=== PATIENT | female | born 1955 | race Caucasian/White ===

== ENCOUNTER 2017-09-18 12:01 | Observation (INO) ==
[2017-09-18] MEDS ORDERED: *HR* Morphine 2 MG/ML SYRINGE IVP PRN ×2 (18:00→19:32)
[2017-09-18] MEDS ORDERED: Acetaminophen 325 MG TABLET PO PRN (19:22)
[2017-09-18] MEDS ORDERED: Nitroglycerin 0.4 MG TAB.SUBL SL PRN (19:27)
[2017-09-18] MEDS ORDERED: Naloxone 0.4 MG/ML INJ IVP PRN (19:28)
[2017-09-18] MEDS ORDERED: Ondansetron 4 MG/2 ML VIAL IVP PRN (19:28)
--- NOTE | 2017-09-18 19:34 | Internal Med History&Physical ---
Date of Encounter: 09/18/17 Time of Encounter: 19:32 Assessment and Plan (1) Rectus sheath hematoma Current visit: Yes Status: Acute Left focal rectus sheath hematoma exacerbated by Coumadin with supratherapeutic INR and Plavix Risks of reversing Coumadin and stopping Plavix were explained, option of not reversing it were given and discussed with the patient She prefers at this point to reverse the high INR and stop Plavix Give vitamin K, administer fresh frozen plasma, hold Plavix and monitor INR Protonix 40 a prophylaxis and sequential compression devices for DVT prophylaxis. The patient will be admitted as inpatient, expected to stay more than 2 minutes. Full code. Time spent on this admission 40 minutes Qualifiers: Encounter type: initial encounter Qualified Code(s): S30.1XXA - Contusion of abdominal wall, initial encounter (2) Sepsis Current visit: Yes Status: Acute Acute hypoxic COPD exacerbation due to Sepsis secondary to community-acquired pneumonia *Solu-Medrol, Rocephin and azithromycin Oxygen therapy, DuoNeb nebs Blood cultures Qualifiers: Sepsis type: sepsis due to unspecified organism Qualified Code(s): A41.9 - Sepsis, unspecified organism (3) CAD (coronary artery disease) Current visit: No Status: Chronic Continue metoprolol, isosorbide, simvastatin Check EKG EKG was not in the paperwork, report reads atrial fibrillation with rapid ventricular response and moderate ST depression Check echocardiogram and CT scan shows possible left ventricular aneurysm Qualifiers: Coronary Disease-Associated Artery/Lesion type: bypass graft [place] vs. transplanted heart: [place] heart Associated angina: without angina Qualified Code(s): I25.810 - Atherosclerosis of coronary artery bypass graft(s) without angina pectoris (4) CKD (chronic kidney disease), stage III Current visit: No Status: Chronic (5) Tobacco abuse Current visit: No Status: Chronic Smoking cessation counseling, nicotine patch (6) Ischemic cardiomyopathy Current visit: No Status: Acute (7) Elevated troponin Current visit: No Status: Acute Likely secondary to demand ischemia, monitor troponins, telemetry (8) Atrial fibrillation Current visit: No Status: Chronic Atrial fibrillation with rapid ventricular response Use Lopressor IV as needed, consider Cardizem Qualifiers: Atrial fibrillation type: chronic Qualified Code(s): I48.2 - Chronic atrial fibrillation (9) COPD exacerbation Current visit: No Status: Acute Acute COPD exacerbation Steroids (10) Community acquired pneumonia Current visit: No Status: Acute Qualifiers: Laterality: unspecified laterality Qualified Code(s): J18.9 - Pneumonia, unspecified organism (11) HLD (hyperlipidemia) Current visit: No Status: Chronic Qualifiers: Hyperlipidemia type: unspecified Qualified Code(s): E78.5 - Hyperlipidemia , unspecified (12) Supratherapeutic INR Current visit: No Status: Acute Internal Medicine - H&P: HPI Chief complaint: Abdominal pain Admitted From: Emergency Dept History of present illness: Ms. Christian is a 61 year old female with a past medical history of atrial fibrillation on anticoagulation, CAD status post stents and peripheral vascular disease on Plavix. The patient started complaining of left lower quadrant abdominal pain 3 days after [place], got worse today and was 10 out of 10 in intensity. The pain was described as sharp. CT scan of the abdomen showed focal left rectus sheath hematoma, evidence of possible left ventricular aneurysm and a right renal stone nonobstructive. INR is 3.2, troponin 0.09 although she denies any chest pain. Chest x-ray also showed bilateral basilar pneumonia. White blood cell count is 22 heart rate is 101 platelets 407 ESR 40. They are physician in [place] called Dr. Hancock who recommended admission to the hospitalist service. Patient feels slightly short of breath ABG shows a pH of 7.46 PCO2 32 and PO2 76. [place] better after receiving Dilaudid. Has been bringing up yellowish phlegm. He is in excruciating pain. 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) - Social History Smoking Status: Current every day smoker Packs per day: 1 Smokeless Tobacco Status: No Alcohol use: occasionally Drug use: none - Family History Mother Adopted: No Living Status: Hx Family Cardiac Disorders: Yes (PT REPORTED HER MOTHER HAD HEART PROBLEMS.) Father Adopted: No Family Member Ethnicity: Non- Living Status: Hx Family Cardiac Disorders: Yes Hx Family Respiratory Disorders: No Hx Family Cancer: Yes Hx Family GI Disorders: No - Additional Family History Additional family history: Mother with heart disease, father with myocardial infarction in his 50s Internal Medicine - H&P: Meds Albuterol Neb [Proventil Neb] 2.5 mg IH Q4HR 06/08/15 [History] Albuterol Sulfate [Albuterol Inhaler] 2 puff IH Q4HR 06/08/15 [History] Clopidogrel [Plavix] 75 mg PO DAILY 06/08/15 [History] Paroxetine [Paxil] 40 mg PO BID 06/08/15 [History] Isosorbide MONOnitrate (24 HR) [Imdur] 30 mg PO DAILY #30 tab.er.24h 10/25/15 [ Rx] Metoprolol XL (24 HR) Succ [Toprol Xl] 100 mg PO DAILY 30 Days tab.er.24h 10/25 [Rx] Nitroglycerin 0.4 mg SL Q5MIN PRN #100 tab.subl 10/25/15 [Rx] Simvastatin [Zocor] 40 mg PO HS #30 tablet 10/25/15 [Rx] HYDROcodone/Acet 7.5/325 mg [[place] 7.5-325 mg] 1 tab PO Q6H PRN 10/28/15 [ History] Lisinopril [Zestril] 2.5 mg PO DAILY #30 tablet 10/30/15 [Rx] Furosemide [Lasix] 20 mg PO DAILY 09/03/16 [History] Warfarin [Coumadin] 5 mg PO DAILY 09/03/16 [History] GuaiFENesin/Dextromethorphan [Robitussin/Dm] 10 ml PO Q6HR PRN #1 udc 09/06/16 [ Rx] predniSONE [PredniSONE] 40 mg PO DAILY #4 tablet 09/06/16 [Rx] 3 Allergy/AdvReac Type Severity Reaction Status Date / Time atorvastatin [From Lipitor] AdvReac See Verified 09/18/17 04:24 Comments All Systems PM: A 10-system review of systems was performed and is negative for pertinent findings except as documented above in the HPI. Review of systems: Severe pain, shortness of breath. Other systems out of the ten reviewed were negative - Constitutional Vitals: Temp Pulse Resp BP Pulse Ox 99.0 F 101 16 137/69 93 09/18/17 15:04 09/18/17 15:04 09/18/17 15:04 09/18/17 15:04 09/18/17 15:04 General appearance: Present: A&O X 3 - Head Head exam: Present: atraumatic, normocephalic - Eye Eye exam: Present: PERRL, conjuntiva pink, sclera anicteric Pupils: Present: PERRL - Neck Neck exam general surgery: Present: supple, trachea midline. Absent: lymphadenopathy - Respiratory Respiratory exam: Present: CTAB, rales, wheezes (Bibasilar crackles and diffuse wheezing). Absent: accessory muscle use, rhonchi - Cardiovascular Cardiovascular exam: Present: RRR, +S1, +S2. Absent: diastolic murmur, gallop, rubs, systolic murmur - GI/Abdominal GI/Abdominal exam: Present: normal bowel sounds, soft, tenderness (Left lower quadrant tenderness, no ecchymosis), no peritoneal signs. Absent: distended - Extremities Exam Extremities exam: Present: pedal edema (Minimal +1 pitting edema in both lower extremities), warm, radial pulses palpable and symmetrical. Absent: calf tenderness, cyanotic - Neurological Exam Neurological exam: Present: CN II-XII intact, oriented X3, no focal deficits. Absent: pronater drift, facial droop, speech deficit - Skin Skin exam: Present: dry, intact Internal Med - H&P Results - Labs Labs: As described in HPI
[2017-09-18] MEDS ORDERED: *HR* Metoprolol 5 MG/5 ML VIAL IVP PRN (19:45)
[2017-09-18] MEDS: *HR* HYDROmorphone (PF) 1 MG/ML SYRINGE IVP PRN (20:14)
[2017-09-18] MEDS: Ipratropium/Albuterol Neb 3 ML IH SCH ×2 (20:18→22:24)
[2017-09-18] MEDS: 0.9 % Sodium Chloride 1,000 ML IVC SCH (20:34)
[2017-09-18] MEDS: Azithromycin 500 MG in D5% in Water 250 ML IVPB SCH (20:35)
[2017-09-18] MEDS: cefTRIAXone 1,000 MG in Water for inj. (sterile) 20 ML 10 ML IVP SCH (20:37)
[2017-09-18] MEDS ORDERED: 0.9 % Sodium Chloride 250 ML ONE (22:02)
[2017-09-18] MEDS: Pantoprazole 40 MG VIAL IVP SCH (22:08)
[2017-09-18] MEDS: MethylPREDNISolone 40 MG/ML VIAL IVP SCH (22:08)
[2017-09-18] MEDS: Nicotine 21 MG PATCH.TD24 TD SCH (22:09)
[2017-09-19] MEDS: Ipratropium/Albuterol Neb 3 ML IH SCH ×4 (03:37→22:47)
[2017-09-19] MEDS: MethylPREDNISolone 40 MG/ML VIAL IVP SCH ×3 (06:41→23:05)
[2017-09-19] MEDS ORDERED: Perflutren Lipid Microsphere 1.3 ML in 0.9 % Sodium Chloride 8.7 ML IVP ONE (07:25)
[2017-09-19 08:14] LABS: INR 1.6; Prothrombin Time 16.9 Seconds (9.4-12.1)
[2017-09-19 08:21] LABS: BUN/Creatinine Ratio 18 (6-26); Blood Urea Nitrogen 20 mg/dL (8-23); Calcium 8.6 mg/dL (8.6-10.3); Carbon Dioxide 22 mEq/L (23-29); Chloride 110 mEq/L (98-107); Chol/HDL Ratio 4.9 (0-4.9); Cholesterol 176 mg/dL (< 200); Glucose 194 mg/dL (70-105); HDL Cholesterol 36 mg/dL (40-59); LDL Cholesterol,Calculated 121 mg/dL (0-99); Osmolality,Calculated 298 (280-300); Potassium 4.3 mEq/L (3.5-5.1); Sodium 140 mEq/L (136-145); Triglycerides 97 mg/dL (< 150); eGFR For African Americans > 60 (> 60); eGFR For Non-African Americans 50 (> 60)
[2017-09-19 08:44] LABS: Hematocrit 31.4 % (35.3-44.9); Hemoglobin 9.8 g/dL (11.5-15.4); Immature Platelets 2.8 % (1.1-6.1); Mean Corpuscular HGB Conc 31.2 g/dL (31.6-35.5); Mean Corpuscular Hemoglobin 27.9 pg (28.0-33.3); Mean Corpuscular Volume 89.5 fL (83.0-100.0); Mean Platelet Volume 9.9 fL (9.4-12.4); Red Blood Count 3.51 M/mcL (3.82-4.97); Red Cell Distribution Width 17.3 % (11.5-14.5)
--- NOTE | 2017-09-19 08:57 | Electrocardiograph Report ---
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
[2017-09-19] MEDS: 0.9 % Sodium Chloride 1,000 ML IVC SCH (10:25)
[2017-09-19] MEDS: Isosorbide MONOnitrate (24 HR) 30 MG TAB.ER.24H PO SCH (10:26)
[2017-09-19] MEDS: Pantoprazole 40 MG VIAL IVP SCH (10:26)
[2017-09-19] MEDS: Nicotine 21 MG PATCH.TD24 TD SCH (10:26)
[2017-09-19] MEDS: Metoprolol XL (24 HR) Succ 50 MG TAB.ER.24H PO SCH (10:26)
--- NOTE | 2017-09-19 17:10 | Internal Med Progress Note ---
Date of Encounter: 09/19/17 Time of Encounter: 17:08 - Assessment and plan (1) Rectus sheath hematoma Current Visit: Yes Status: Acute Assessment and plan: Left focal rectus sheath hematoma exacerbated by Coumadin with supratherapeutic INR and Plavix Risks of reversing Coumadin and stopping Plavix were explained, option of not reversing it were given and discussed with the patient She preferred to reverse her high INR and stop Plavix, INR was 1.6 this morning Was given vitamin K, and administered fresh frozen plasma, May resume Plavix in the morning if stable Qualifiers: Encounter type: initial encounter Qualified Code(s): S30.1XXA - Contusion of abdominal wall, initial encounter (2) Sepsis Current Visit: Yes Status: Acute Assessment and plan: Acute hypoxic COPD exacerbation due to Sepsis secondary to community-acquired pneumonia *Solu-Medrol, Rocephin and azithromycin day #2 Oxygen therapy, DuoNeb nebs Blood cultures Qualifiers: Sepsis type: sepsis due to unspecified organism Qualified Code(s): A41.9 - Sepsis, unspecified organism (3) Left ventricular aneurysm Current Visit: Yes Status: Acute Assessment and plan: Ejection fraction of 30% with moderately dilated left ventricle, there is a large aneurysm in the anterolateral and inferolateral segments of the left ventricle, no obvious thrombus Consult cardiology, will resume Coumadin when possible (4) CAD (coronary artery disease) Current Visit: No Status: Chronic Assessment and plan: Continue metoprolol, isosorbide, simvastatin Ejection fraction of 30% with moderately dilated left ventricle, there is a large aneurysm in the anterolateral and inferolateral segments of the left ventricle, no obvious thrombus Qualifiers: Coronary Disease-Associated Artery/Lesion type: bypass graft [place] vs. transplanted heart: [place] heart Associated angina: without angina Qualified Code(s): I25.810 - Atherosclerosis of coronary artery bypass graft(s) without angina pectoris (5) CKD (chronic kidney disease), stage III Current Visit: No Status: Chronic (6) Tobacco abuse Current Visit: No Status: Chronic Assessment and plan: Smoking cessation counseling (7) Ischemic cardiomyopathy Current Visit: No Status: Acute (8) Elevated troponin Current Visit: No Status: Acute Assessment and plan: Possibly demand ischemia (9) Atrial fibrillation Current Visit: No Status: Chronic Assessment and plan: Continue metoprolol, hold Coumadin Qualifiers: Atrial fibrillation type: chronic Qualified Code(s): I48.2 - Chronic atrial fibrillation (10) COPD exacerbation Current Visit: No Status: Acute Assessment and plan: Acute COPD exacerbation secondary to community-acquired pneumonia Continue steroids and DuoNeb's (11) Community acquired pneumonia Current Visit: No Status: Acute Qualifiers: Laterality: unspecified laterality Qualified Code(s): J18.9 - Pneumonia, unspecified organism (12) HLD (hyperlipidemia) Current Visit: No Status: Chronic Qualifiers: Hyperlipidemia type: unspecified Qualified Code(s): E78.5 - Hyperlipidemia , unspecified (13) Supratherapeutic INR Current Visit: No Status: Acute - Subjective Interval history: Left lower quadrant pain has decreased down to 3/10, less short of breath, no fevers or chills, no dysuria, no diarrhea - Constitutional Vitals: Temp Pulse Resp BP Pulse Ox 98.1 F 86 16 134/75 99 09/19/17 14:45 09/19/17 14:45 09/19/17 16:49 09/19/17 14:45 09/19/17 16:49 General appearance: Present: A&O X 3 Exam: - Head Head exam: Present: atraumatic, normocephalic - Eye Eye exam: Present: PERRL, conjuntiva pink, sclera anicteric Pupils: Present: PERRL - Neck Neck exam general surgery: Present: supple, trachea midline. Absent: lymphadenopathy - Respiratory Respiratory exam: Present: CTAB, rales, wheezes (Bibasilar crackles and diffuse wheezing). Absent: accessory muscle use, rhonchi - Cardiovascular Cardiovascular exam: Present: RRR, +S1, +S2. Absent: diastolic murmur, gallop, rubs, systolic murmur - GI/Abdominal GI/Abdominal exam: Present: normal bowel sounds, soft, tenderness (Left lower quadrant tenderness, no ecchymosis), no peritoneal signs. Absent: distended - Extremities Exam Extremities exam: Present: pedal edema (Minimal +1 pitting edema in both lower extremities), warm, radial pulses palpable and symmetrical. Absent: calf tenderness, cyanotic - Neurological Exam Neurological exam: Present: CN II-XII intact, oriented X3, no focal deficits. Absent: pronater drift, facial droop, speech deficit - Skin Skin exam: Present: dry, intact Internal Medicine: Result - Labs CBC & Chem 7: 09/19/17 08:34 09/19/17 07:49 Labs: Short CBC 09/19/17 Range/Units 08:34 WBC 13.9 H (4.3-11.1) K/mcL Hgb 9.8 L D (11.5-15.4) g/dL Hct 31.4 L (35.3-44.9) % Plt Count 283 (140-400) K/mcL BMP 09/19/17 07:49 Sodium 140 Potassium 4.3 Chloride 110 H Carbon Dioxide 22 L BUN 20 Creatinine 1.11 Glucose 194 H Calcium 8.6 Cardiac Enzymes 09/18/17 09/19/17 Range/Units 22:35 07:49 Troponin I 0.23 H* 0.15 H* (< 0.04) ng/mL - ABG Interpretation ABG results: PT/INR, D-dimer PT 16.9 Seconds (9.4-12.1) H D 09/19/17 07:49 - Impressions Impressions Echocardiogram 09/19/17 13:00 Impressions: LVEF 30%. Moderately dilated left ventricle. Despite the use of contrast, not all LV segments were well visualized. Overall, LV function appeared globally reduced, LVEF 30%. There is a large aneurysm of the anterolateral and inferolateral segments of the left ventricle. Suboptimal image quality, but measures approximately 5.2 cm x 5.7 cm. No obvious thrombus visualized within the aneurysm. Indeterminate diastolic function. Right ventricle was not well visualized. Unable to estimate RVSP due to lack of TR jet. No significant valvular dysfunction. Findings: Study Quality * Technically sub-optimal due to poor echocardiographic windows. ECG Findings * Atrial fibrillation. Left Ventricle * LVEF 30%. * Moderately dilated left ventricle. * Despite the use of contrast, not all LV segments were well visualized. Overall, LV function appeared globally reduced, LVEF 30%. * There is a large aneurysm of the anterolateral and inferolateral segments of the left ventricle. Suboptimal image quality, but measures approximately 5.2 cm x 5.7 cm. * Indeterminate diastolic function. Right Ventricle * Right ventricle was not well visualized. Left Atrium * Moderately dilated left atrium. Right Atrium * Mildly dilated right atrium. Interatrial Septum * Interatrial septum not well evaluated. Aortic Valve * Aortic valve not well visualized. * No aortic regurgitation. * No aortic stenosis. Mitral Valve * Mild mitral annular calcification * Trace mitral regurgitation. * No mitral stenosis. Tricuspid Valve * Tricuspid valve not well visualized. * No tricuspid regurgitation. * Unable to estimate RVSP due to lack of TR jet. Pulmonic Valve * Pulmonic valve not well visualized. Aorta * Normally sized aortic root. Pericardium * The pericardium appears normal. Consult Discharge Plan - Plan Referrals: Keven Nielson CNP [Primary Care Provider] -
[2017-09-19] MEDS: Azithromycin 500 MG in D5% in Water 250 ML IVPB SCH (20:36)
[2017-09-19] MEDS: cefTRIAXone 1,000 MG in Water for inj. (sterile) 20 ML 10 ML IVP SCH (20:42)
[2017-09-19] MEDS: *HR* HYDROmorphone (PF) 1 MG/ML SYRINGE IVP PRN (20:43)
[2017-09-20] MEDS: *HR* HYDROmorphone (PF) 1 MG/ML SYRINGE IVP PRN ×2 (01:07→06:01)
[2017-09-20] MEDS: Ipratropium/Albuterol Neb 3 ML IH SCH ×3 (04:11→16:45)
[2017-09-20 04:12] VITALS: BP 128/67
[2017-09-20] MEDS: 0.9 % Sodium Chloride 1,000 ML IVC SCH (06:00)
[2017-09-20] MEDS ORDERED: MethylPREDNISolone 40 MG/ML VIAL IVP SCH (07:00)
[2017-09-20] MEDS: Pantoprazole 40 MG VIAL IVP SCH (10:00)
[2017-09-20] MEDS: Nicotine 21 MG PATCH.TD24 TD SCH (10:00)
[2017-09-20] MEDS: Metoprolol XL (24 HR) Succ 50 MG TAB.ER.24H PO SCH (10:00)
[2017-09-20] MEDS: Isosorbide MONOnitrate (24 HR) 30 MG TAB.ER.24H PO SCH (10:00)
--- NOTE | 2017-09-20 12:19 | Cardiology Consult Note ---
Date of Encounter: 09/20/17 Time of Encounter: 12:16 Assessment and Plan (1) CAD (coronary artery disease) Current Visit: No Status: Chronic stable and asymptomatic, Troponins low level flat likely demand ischemia. LVEF 30% stable Qualifiers: Coronary Disease-Associated Artery/Lesion type: bypass graft [place] vs. transplanted heart: [place] heart Associated angina: without angina Qualified Code(s): I25.810 - Atherosclerosis of coronary artery bypass graft(s) without angina pectoris (2) Ischemic cardiomyopathy Current Visit: No Status: Acute LV aneurysm without clot similiar to 2016 ECHO. Compensated with no complaints of BLACK,orthopne or PND. Patient may be a candidate for an ICD will discuss and arrange follow up with EP if she is considering (3) Left ventricular aneurysm Current Visit: Yes Status: Acute unchanged without clot, resume coumadin when possible for both LV aneurysm and Afib Discussion w patient/family: The assessment and plan as outlined above was discussed with the patient and/or family members who expressed understanding and agreement. All questions were answered. Thank you for involving us in the care of your patient. Please call with any questions. History of Present Illness Consult reason: LV aneursym Chief complaint: Bleed in my thigh History of present illness: Ms. Christian is a 61 year old female with known extensive CAD hx and LV aneurysm presents with right sponataneous rectus sheath bleed. Patient has a hx of Afib rate controlled on coumadin. LVEF 30% as compared to 2016. LHC 2016 revealed 3/ 4 patent grafts to LAD, RPDA, DIAG and occluded to the OM. Patient denies any SOB, BLACK or chest pain. 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) - Social History Smoking Status: Current every day smoker Packs per day: 1 Smokeless Tobacco Status: No Alcohol use: occasionally Drug use: none - Family History Mother Adopted: No Living Status: Hx Family Cardiac Disorders: Yes (PT REPORTED HER MOTHER HAD HEART PROBLEMS.) Father Adopted: No Family Member Ethnicity: Non- Living Status: Hx Family Cardiac Disorders: Yes Hx Family Respiratory Disorders: No Hx Family Cancer: Yes Hx Family GI Disorders: No Medications and Allergies Albuterol Neb [Proventil Neb] 2.5 mg IH Q4HR 06/08/15 [History] Albuterol Sulfate [Albuterol Inhaler] 2 puff IH Q4HR 06/08/15 [History] Clopidogrel [Plavix] 75 mg PO DAILY 06/08/15 [History] Paroxetine [Paxil] 40 mg PO BID 06/08/15 [History] Isosorbide MONOnitrate (24 HR) [Imdur] 30 mg PO DAILY #30 tab.er.24h 10/25/15 [ Rx] Nitroglycerin 0.4 mg SL Q5MIN PRN #100 tab.subl 10/25/15 [Rx] Simvastatin [Zocor] 40 mg PO HS #30 tablet 10/25/15 [Rx] HYDROcodone/Acet 7.5/325 mg [[place] 7.5-325 mg] 1 tab PO Q6H PRN 10/28/15 [ History] Lisinopril [Zestril] 2.5 mg PO DAILY #30 tablet 10/30/15 [Rx] Furosemide [Lasix] 20 mg PO DAILY 09/03/16 [History] Warfarin [Coumadin] 5 mg PO DAILY 09/03/16 [History] Metoprolol [Lopressor] 50 mg PO BID 09/19/17 [History] 3 Allergy/AdvReac Type Severity Reaction Status Date / Time atorvastatin [From Lipitor] AdvReac See Verified 09/18/17 04:24 Comments All Systems Review: A 10-system review of systems was performed and is negative for pertinent findings except as documented above in the HPI. Physical Examination Vital Signs, Last 4 Hours Resp Pulse Ox 09/20/17 09:50 16 97 General: Conversant, No Apparent Distress HEENT: Atraumatic, Normocephaly, Mucus Membranes Moist Neck: No JVD, Normal carotid pulses Cardiac: Reg Rate and Rhythm, Normal S1 and S2, No Murmur Lungs: Normal Breath Sounds, No Wheeze, Rales, Rhonchi Neuro: Alert and responsive, No focal deficits noted Abdomen: Soft, Non-Tender Skin: No rashes noted on visualized skin Musculoskeletal: No Chest Wall Tenderness Extremities: No Clubbing, No Cyanosis, No Edema, Normal Pulses Results 09/19/17 08:34 09/19/17 07:49 Consult Discharge Plan - Plan Referrals: Keven Nielson, CHASIDY [Primary Care Provider] -
[2017-09-20] MEDS ORDERED: *HR* Warfarin 7.5 MG TABLET PO ONE (13:58)
[2017-09-20] MEDS ORDERED: cefTRIAXone 1,000 MG in Water for inj. (sterile) 20 ML 10 ML IVP SCH (14:03)
[2017-09-20] MEDS ORDERED: Azithromycin 250 MG TABLET PO ONE (14:03)
--- NOTE | 2017-09-20 14:06 | Discharge Summary ---
Date of Encounter: 09/20/17 Time of Encounter: 14:01 - Discharge Diagnosis (1) Rectus sheath hematoma Priority: Primary Status: Acute Comments: Left focal rectus sheath hematoma exacerbated by Coumadin with supratherapeutic INR and Plavix Qualifiers: Encounter type: initial encounter Qualified Code(s): S30.1XXA - Contusion of abdominal wall, initial encounter (2) Sepsis Priority: Primary Status: Acute Comments: Acute hypoxic COPD exacerbation due to Sepsis secondary to community-acquired pneumonia, unknown agent Qualifiers: Sepsis type: sepsis due to unspecified organism Qualified Code(s): A41.9 - Sepsis, unspecified organism (3) Left ventricular aneurysm Priority: Secondary Status: Acute Comments: Ejection fraction of 30% with moderately dilated left ventricle, there is a large aneurysm in the anterolateral and inferolateral segments of the left ventricle, no obvious thrombus (4) CAD (coronary artery disease) Priority: Secondary Status: Chronic Qualifiers: Coronary Disease-Associated Artery/Lesion type: bypass graft [place] vs. transplanted heart: [place] heart Associated angina: without angina Qualified Code(s): I25.810 - Atherosclerosis of coronary artery bypass graft(s) without angina pectoris (5) CKD (chronic kidney disease), stage III Priority: Secondary Status: Chronic (6) Tobacco abuse Priority: Secondary Status: Chronic (7) Ischemic cardiomyopathy Priority: Secondary Status: Acute Comments: Needs an AICD (8) Elevated troponin Priority: Secondary Status: Acute Comments: Secondary to demand ischemia (9) Atrial fibrillation Priority: Secondary Status: Chronic Qualifiers: Atrial fibrillation type: chronic Qualified Code(s): I48.2 - Chronic atrial fibrillation (10) COPD exacerbation Priority: Primary Status: Acute (11) Community acquired pneumonia Priority: Primary Status: Acute Qualifiers: Laterality: unspecified laterality Qualified Code(s): J18.9 - Pneumonia, unspecified organism (12) HLD (hyperlipidemia) Priority: Secondary Status: Chronic Qualifiers: Hyperlipidemia type: unspecified Qualified Code(s): E78.5 - Hyperlipidemia , unspecified (13) Supratherapeutic INR Priority: Primary Status: Acute - Discharge Medications Prescriptions: Cefdinir [Omnicef] 300 mg PO BID #10 capsule HYDROcodone/Acet 7.5/325 mg [[place] 7.5-325 mg] 1 tab PO Q6H PRN #30 tablet PRN Reason: Pain predniSONE [PredniSONE] 40 mg PO DAILY 12 Days tablet Home Medications: Albuterol Neb [Proventil Neb] 2.5 mg IH Q4HR 06/08/15 [History] Albuterol Sulfate [Albuterol Inhaler] 2 puff IH Q4HR 06/08/15 [History] Clopidogrel [Plavix] 75 mg PO DAILY 06/08/15 [History] Paroxetine [Paxil] 40 mg PO BID 06/08/15 [History] Isosorbide MONOnitrate (24 HR) [Imdur] 30 mg PO DAILY #30 tab.er.24h 10/25/15 [ Rx] Nitroglycerin 0.4 mg SL Q5MIN PRN #100 tab.subl 10/25/15 [Rx] Simvastatin [Zocor] 40 mg PO HS #30 tablet 10/25/15 [Rx] Lisinopril [Zestril] 2.5 mg PO DAILY #30 tablet 10/30/15 [Rx] Furosemide [Lasix] 20 mg PO DAILY 09/03/16 [History] Warfarin [Coumadin] 5 mg PO DAILY 09/03/16 [History] Metoprolol [Lopressor] 50 mg PO BID 09/19/17 [History] Cefdinir [Omnicef] 300 mg PO BID #10 capsule 09/20/17 [Rx] HYDROcodone/Acet 7.5/325 mg [[place] 7.5-325 mg] 1 tab PO Q6H PRN #30 tablet 09/20 [Rx] predniSONE [PredniSONE] 40 mg PO DAILY 12 Days tablet 09/20/17 [Rx] Allergies/Adverse Reactions: 3 Allergy/AdvReac Type Severity Reaction Status Date / Time atorvastatin [From Lipitor] AdvReac See Verified 09/18/17 04:24 Comments Procedures/tests Complete & Pending: Procedures Performed prior 72 hours Category Date Time Status EKG [ECG 12 lead ECG] [ECG] Stat Y 09/19/17 07:36 Completed EV echocardiogram w enhance Routine Y 09/19/17 13:00 Completed Date of admission: 09/18/17 19:28 Primary care physician: Keven Nielson CNP Consults: 09/18/17 19:24 Consult to Surgery [CONS] Routine Consulting Provider: Pamela Hancock Reason for Consult: left rectus hematoma, called by ER Call Completed: No 09/19/17 17:17 Consult to Cardiology [CONS] Routine Comment: Consulting Provider: Lorrie Ortega Reason for Consult: Left ventricle aneurysm Call Completed: Yes - Patient Status Disposition: Home, Self-Care Condition: Good Overall status at discharge: patient is progressing back to baseline - Discharge Instructions Follow Up With: Keven Nielson CNP [Primary Care Provider] - Additional Instructions: Follow-up with primary care physician within the next 7 days. Follow-up with Coumadin clinic by Friday. Follow up with cardiology in order to consider AICD /defibrillator. Complete 5 more days of Cefdinir, resume warfarin and Plavix. Protein taper As follows : 40 mg daily for 3 days, 30 mg for 3 days, 20 mg for 3 days, 10 mg for 3 days - Diet and Activity Activity: increase activity as tolerated Diet: low fat, low cholesterol Hospital course: Ms. 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 The patient started complaining of left lower quadrant abdominal pain 3 days after [place], got worse and was 10 out of 10 in intensity. The pain was described as sharp. CT scan of the abdomen showed focal left rectus sheath hematoma, evidence of possible left ventricular aneurysm and a right renal stone nonobstructive. INR was 3.2, troponin 0.09 although she denied any chest pain. Chest x-ray also showed bilateral basilar pneumonia. White blood cell count was 22, heart rate is 101 platelets 407 ESR 40. ER physician in [place] called Dr. Hancock who recommended admission to the hospitalist service. ABG showed a pH of 7.46 PCO2 32 and PO2 76. [place] better after receiving Dilaudid. Was bringing up yellowish phlegm. Risks of reversing Coumadin and stopping Plavix were explained, option of not reversing it was given and discussed with the patient. She preferred to reverse her high INR and stop Plavix, Was given vitamin K, and administered fresh frozen plasma, INR was reversed. The patient was started also on Rocephin and azithromycin. Her abdominal pain subsided, she was also started on Solu-Medrol due to acute COPD exacerbation. Feels much better today. Cardiology was consulted due to worsening left ventricular aneurysm, as the echocardiogram showed a EF of 30% with no thrombus. Cardiology recommended to start anticoagulation as soon as possible for which the patient will be restarted on warfarin tonight, Plavix will be resumed as well. The patient was given the option to stay another day due to inclement weather but she prefers to be discharged at this point and follow-up as an outpatient with cardiology to consider an AICD placement. Time spent discussing smoking cessation with patient: 3 to 10 minutes - Time Spent with Patient Total time spent providing and/or coordinating discharge services: Greater than 30 minutes (40 min) - Constitutional Vitals: Temp Pulse Resp BP Pulse Ox 97.5 F L 91 16 128/67 97 09/20/17 04:11 09/20/17 04:11 09/20/17 09:50 09/20/17 04:11 09/20/17 09:50 General appearance: Present: A&O X 3, morbidly obese, pleasant - Head Head exam: Present: atraumatic, normocephalic - Eye Eye exam: Present: PERRL, conjuntiva pink, sclera anicteric Pupils: Present: PERRL - Neck Neck exam general surgery: Present: supple, trachea midline. Absent: lymphadenopathy - Respiratory Respiratory exam: Present: CTAB. Absent: accessory muscle use, rales, rhonchi, wheezes - Cardiovascular Cardiovascular exam: Present: RRR, +S1, +S2. Absent: diastolic murmur, gallop, rubs, systolic murmur - GI/Abdominal GI/Abdominal exam: Present: normal bowel sounds, soft, no peritoneal signs. Absent: distended, tenderness - Extremities Exam Extremities exam: Present: warm, radial pulses palpable and symmetrical. Absent : calf tenderness, cyanotic, pedal edema - Neurological Exam Neurological exam: Present: CN II-XII intact, oriented X3, no focal deficits. Absent: pronater drift, facial droop, speech deficit - Skin Skin exam: Present: dry, intact
[2017-09-20] MEDS ORDERED: *HR* HYDROcodone/Acet 7.5/325 mg TABLET PO ONE (14:50)
[2017-09-21] MEDS ORDERED: predniSONE 20 MG TABLET PO SCH (09:00)
--- NOTE | 2017-09-22 15:39 | Electrocardiograph Report ---
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
== END 2017-09-20 18:25 | disposition home or self-care (01) | DRG 871 ==
LOC: 3ANU → SUATTDRO 19:28
PROVIDERS: ADMIT Internal Medicine; ATTEND Internal Medicine

== ENCOUNTER 2018-07-05 21:21 | Inpatient (IN) ==
[2018-07-05] MEDS ORDERED: *HR* Ticagrelor 90 MG TABLET PO ONE (21:29)
[2018-07-05] MEDS ORDERED: *HR* Ticagrelor 90 MG TABLET ONE (21:33)
--- NOTE | 2018-07-05 21:33 | Emergency Department Note ---
Disposition Clinical Impression: Elevated troponin Chest pain Qualifiers: Chest pain type: unspecified Qualified Code(s): R07.9 - Chest pain, unspecified Disposition: Admitted As Inpatient Referrals: Michelle Crocker CNP [Primary Care Provider] - Time of Disposition: 22:55 General Adult HPI - General Time Seen by Provider: 07/05/18 21:29 Source: EMS Mode of arrival: EMS Limitations: no limitations Nursing Notes Reviewed: Yes Vital Signs Reviewed: Yes - History of Present Illness HPI Narrative: Female patient presenting complaints were in by EMS for crushing chest pain is started yesterday. EMS called in and faxed an EKG that was concerning for ST elevation in leads 2,3, and Avf. Pt states that the pain is midsternal. Started while she was doing laundry. Gets worse whenever she is walking. Does have associated shortness of breath diaphoresis and nausea. Did take nitroglycerin today at home with no relief however did get some relief of her chest pain and is not having it currently. She was having chest pain during the transport in until EMS gave her nitroglycerin. They did give her 324 of aspirin as well. Patient does have a history of CABG as well as stent placement after the CABG. She has peripheral artery disease as well as history of PE. She does also have a history of COPD and is currently on steroids for an exacerbation. She does report increase in sputum as well as a change in the color of her sputum. - Related Data Home Medications Medication Instructions Recorded Confirmed Albuterol Neb [Proventil Neb] 2.5 mg IH Q4HR 06/08/15 09/19/17 Albuterol Sulfate [Albuterol 2 puff IH Q4HR 06/08/15 09/19/17 Inhaler] Clopidogrel [Plavix] 75 mg PO DAILY 06/08/15 09/19/17 Paroxetine [Paxil] 40 mg PO BID 06/08/15 09/19/17 Furosemide [Lasix] 20 mg PO DAILY 09/03/16 09/19/17 Warfarin [Coumadin] 5 mg PO DAILY 09/03/16 09/19/17 Metoprolol [Lopressor] 50 mg PO BID 09/19/17 09/19/17 Previous Rx's Medication Instructions Recorded Isosorbide MONOnitrate (24 HR) 30 mg PO DAILY #30 tab.er.24h 10/25/15 [Imdur] Nitroglycerin 0.4 mg SL Q5MIN PRN #100 tab.subl 10/25/15 Simvastatin [Zocor] 40 mg PO HS #30 tablet 10/25/15 Lisinopril [Zestril] 2.5 mg PO DAILY #30 tablet 10/30/15 Cefdinir [Omnicef] 300 mg PO BID #10 capsule 09/20/17 HYDROcodone/Acet 7.5/325 mg [[place] 1 tab PO Q6H PRN #30 tablet 09/20/17 7.5-325 mg] predniSONE [PredniSONE] 40 mg PO DAILY 12 Days tablet 09/20/17 Allergies Allergy/AdvReac Type Severity Reaction Status Date / Time atorvastatin [From Lipitor] AdvReac See Verified 09/18/17 04:24 Comments All systems ED: reviewed and negative except as stated. Review of Systems: As Per HPI Constitutional: Denies: fever, chills Cardiovascular: Reports: chest pain. Denies: syncope Respiratory: Reports: cough, dyspnea, sputum production Gastrointestinal: Reports: nausea. Denies: abdominal pain, vomiting, diarrhea Genitourinary: Denies: urgency, dysuria, frequency, hematuria Integumentary: Denies: rash Past Medical History - Past Medical History Attestation: Yes The following information was validated with the patient. Source: patient Medical history: Reports: atrial fibrillation, CHF, COPD, GERD, hyperlipidemia, hypertension, myocardial infarction, other Surgical history: Reports: angioplasty/stent, appendectomy, cholecystectomy, coronary bypass (CABG), other Psychiatric history: Reports: anxiety, depression KENNEL WORKER history: Reports: no KENNEL WORKER history - Social History Smoking Status: Current every day smoker Smokeless Tobacco Status: No Alcohol use: Reports: occasionally Drug use: Reports: none Physical Exam - General Limitations: no limitations General appearance: alert, in no apparent distress - Head Head exam: atraumatic, normocephalic, normal inspection - Eye Eye exam: Present: normal appearance, PERRL, EOMI - ENT ENT exam: normal exam, normal oropharynx, mucous membranes moist - Neck Neck exam: Present: normal inspection, full ROM, trachea midline - Chest Chest inspection: Present: normal inspection, symmetric chest wall rise - Respiratory Respiratory exam: Present: normal lung sounds bilaterally Course Course Narrative: Pt with STEMI on EKG. We did speak with cardiology about this. they are requesting Brilinta. Pt received NITRO by EMS as well as ASA. STEMI alert was activated. Pt has ST elevations in leads 2,3, and Avf. Also has reciprocal changes noted. - Reevaluation(s) Reevaluation #1: called back. He canceled a STEMI alert. This was secondary to the patient stating that her chest pain is resolved at this time. Also similar to previous EKG that he had on file. Pt does have an elevated troponin at 0.05 - Consultations Consultation #1: I spoke with Dr. Andino. He requested we go ahead and set up a STEMI alert and he would cancel it if need be. Time: 21:31 Vital Signs Temperature 99.0 F 07/05/18 21:23 Pulse Rate 100 07/05/18 21:23 Respiratory Rate 16 07/05/18 21:23 Blood Pressure 129/80 07/05/18 21:23 O2 Sat by Pulse Oximetry 99 07/05/18 21:23 Temperature 99.0 F 07/05/18 21:23 Pulse Rate 103 07/05/18 21:47 Respiratory Rate 20 07/05/18 21:47 Blood Pressure 109/89 07/05/18 21:47 O2 Sat by Pulse Oximetry 99 07/05/18 21:47 Oxygen Delivery Oxygen Delivery Nasal Cannula Medical Decision Making - Medical Records Medical records reviewed: Yes I reviewed the patient's medical records. - Lab Data Lab results reviewed: Yes I reviewed the patient's lab results. Result diagrams: 07/05/18 21:29 07/05/18 21:29 Lab Results 07/05/18 07/05/18 07/05/18 Range/Units 21:29 21:29 21:29 WBC 15.4 H D (4.3-11.1) K/mcL RBC 4.79 (3.82-4.97) M/mcL Hgb 13.9 D (11.5-15.4) g/dL Hct 41.7 (35.3-44.9) % MCV 87.1 (83.0-100.0) fL MCH 29.0 (28.0-33.3) pg MCHC 33.3 (31.6-35.5) g/dL RDW 19.9 H (11.5-14.5) % Plt Count 215 (140-400) K/mcL MPV 10.7 (9.4-12.4) fL Immature Gran % 0.4 (0-4) % Seg Neutrophils % 66.7 % Lymphocytes % 24.9 % Monocytes % 6.6 % Eosinophils % 1.3 % Basophils % 0.1 % Neutrophils # 10.3 H (1.6-8.9) K/mcL Lymphocytes # 3.8 (0.6-4.6) K/mcL Monocytes # 1.0 (0.0-1.3) K/mcL Eosinophils # 0.2 (0.0-0.6) K/mcL Basophils # 0.0 (0.0-0.2) K/mcL PT 31.1 H (9.4-12.1) Seconds INR 2.8 APTT 32.9 (26.0-36.0) Seconds Heparin Anti-Xa, Unfract 0.02 L (0.30-0.70) IU/mL Sodium 140 (136-145) mEq/L Potassium 3.7 (3.5-5.1) mEq/L Chloride 110 H (98-107) mEq/L Carbon Dioxide 22 L (23-29) mEq/L BUN 26 H (8-23) mg/dL Creatinine 1.11 (0.60-1.20) mg/dL Est GFR ( Amer) > 60 (> 60) Est GFR (Non-Af Amer) 50 L (> 60) BUN/Creatinine Ratio 23 (6-26) Glucose 98 (70-105) mg/dL Calculated Osmolality 295 (280-300) Calcium 9.6 (8.6-10.3) mg/dL Magnesium 1.7 (1.6-2.6) mg/dL Troponin I 0.05 H* (< 0.04) ng/mL - Radiology Data Radiology results reviewed: Yes I reviewed the patient's radiology results. Chest X-Ray 07/05/18 22:12 IMPRESSION: No acute findings. D/ / Megan Spaulding MD / Megan Spaulding MD Interpreting Provider: Megan Spaulding MD - EKG Data EKG #1 EKG attestation: Yes I reviewed and interpreted this EKG. EKG results narrative: Normal sinus rhythm at a rate of 74. AR interval is a 12. AR interval within normal limits. QRS duration is 138. QT is 385. QTC is 428. Patient does have ST elevation in leads II, III, and F aVF. There is T-wave depression and inversion in lead 1 and aVL. Also has some mild elevation in V4 V5 and V6. Patient does have similar findings on a previous EKG dated 09/19/2017 area Attestation Statement - Attestation Attestation: I, Aramis Vang, examined this patient and my medical decision-making was reviewed with the PUMPER BREWERY/PA/Advanced Practice Nurse/Resident Physician. I agree with the documented findings, disposition and treatment plan as described except to the extent set forth below. 62-year-old female brought to the emergency department by EMS for evaluation of acute onset chest pain. Patient states pain has been intermittent over the past 24 hours. The pain is in the center of her chest and does not radiate and is similar to her previous AL which required stenting. Patient states the pain was 9 out of 10 throughout the day, it was associated with nausea and diaphoresis. Patient did not syncopized or have other near syncopal symptoms. Upon EMS arrival they gave aspirin and nitroglycerin which resolved the patient's pain. EKG showed possible ST elevations in II, III, and F aVF with ST depressions in 1 and aVL. We paged the smoking pipes cleaner immediately after the initial EMS transferred EKG. Upon arrival to the emergency department, the patient has 1-0 out of 10 chest pain after receiving the nitroglycerin however she does still have similar EKG changes. The EKG was sent to the special forces engineer sergeant who reviewed them. He reported that she had similar morphology on previous EKGs. After a long discussion with the special forces engineer sergeant regarding the patient's case and presentation he recommended that she was not likely a candidate for immediate heart catheterization that she did not have pain in the emergency department. I agreed with this and patient felt comfortable with this plan as well. She will be admitted to the hospitalist with heparin and brillinta. Dr. Andino however did recommend that if patient had any worsening of her symptoms that we would need to call him back and she would likely have immediate heart catheterization.
[2018-07-05] MEDS ORDERED: ISOVUE-370 200 ML INFUS..BTL ONE (21:43)
[2018-07-05] MEDS ORDERED: 0.9 % Sodium Chloride 1,000 ML ONE (21:43)
[2018-07-05] MEDS ORDERED: Heparin 1,000 UNITS/500 mL 500 ML ONE (21:43)
[2018-07-05] MEDS ORDERED: *HR* Heparin 10,000 UNIT/10 ML VIAL ONE (21:43)
[2018-07-05] MEDS ORDERED: Nitroglycerin 1,000 MCG/10 ML VIAL IV ONE (21:43)
[2018-07-05 21:48] LABS: INR 2.8; Prothrombin Time 31.1 Seconds (9.4-12.1)
[2018-07-05 21:50] LABS: Activated Partial Thrombo Time 32.9 Seconds (26.0-36.0)
[2018-07-05 21:56] LABS: Basophils % 0.1 %; Eosinophils # 0.2 K/mcL (0.0-0.6); Eosinophils % 1.3 %; Hematocrit 41.7 % (35.3-44.9); Immature Granulocytes % 0.4 % (0-4); Lymphocytes # 3.8 K/mcL (0.6-4.6); Lymphocytes % 24.9 %; Mean Corpuscular HGB Conc 33.3 g/dL (31.6-35.5); Mean Corpuscular Volume 87.1 fL (83.0-100.0); Mean Platelet Volume 10.7 fL (9.4-12.4); Monocytes % 6.6 %; Neutrophils # 10.3 K/mcL (1.6-8.9); Platelet Count 215 K/mcL (140-400); Red Blood Count 4.79 M/mcL (3.82-4.97); Red Cell Distribution Width 19.9 % (11.5-14.5); Segmented Neutrophils % 66.7 %
[2018-07-05 21:57] LABS: Hemoglobin 13.9 g/dL (11.5-15.4)
[2018-07-05 22:01] LABS: BUN/Creatinine Ratio 23 (6-26); Blood Urea Nitrogen 26 mg/dL (8-23); Calcium 9.6 mg/dL (8.6-10.3); Carbon Dioxide 22 mEq/L (23-29); Chloride 110 mEq/L (98-107); Glucose 98 mg/dL (70-105); Magnesium 1.7 mg/dL (1.6-2.6); Osmolality,Calculated 295 (280-300); Potassium 3.7 mEq/L (3.5-5.1); Sodium 140 mEq/L (136-145); eGFR For Non-African Americans 50 (> 60)
[2018-07-05 22:05] LABS: Troponin I 0.05 ng/mL (< 0.04)
[2018-07-05] MEDS ORDERED: *HR* Heparin 5,000 UNIT/ML VIAL IVP ONE (22:15)
[2018-07-05] MEDS ORDERED: *HR* Heparin 5,000 UNIT/ML VIAL IVP PRN ×2 (22:15)
[2018-07-05] MEDS ORDERED: Heparin 25,000 UNIT/500 ML D5W 25,000 UNIT/500 ML BAG IVC SCH (22:15)
[2018-07-05 22:25] LABS: Heparin anti-factor XA UFH 0.02 IU/mL (0.30-0.70)
--- NOTE | 2018-07-05 22:44 | Event Note ---
Date of Encounter: 07/05/18 Time of Encounter: 22:00 - Cardiology Event Note Contacted by ED about possible STEMI. Compared EKG to 2016, similar inferior ST elevation. Patients symptoms 0-1/10 after NTG SL x1 per ED. Recommended treating for ACS with aspirin and brilinta. Patient on coumadin and currently therapeutic. Will fu in AM for possible cath.
[2018-07-05] MEDS ORDERED: Nitroglycerin 0.4 MG TAB.SUBL SL PRN (23:17)
--- NOTE | 2018-07-05 23:30 | Internal Med History&Physical ---
Date of Encounter: 07/05/18 Time of Encounter: 23:24 Internal Medicine - H&P: HPI Chief complaint: chest pain Admitted From: Home Plans for Post Hospital Care: Home History of present illness: Carin Christian is a 61-year-old woman with an extensive history of COPD, coronary artery disease status post CABG and multiple stent placements as well as a left ventricle aneurysm, atrial fibrillation on warfarin, heart failure due to ischemic cardiomyopathy and peripheral vascular disease status post bilateral leg stents who presents to the ER due to complaints of chest pain. She states that the pain started just over 24 hours ago while she was doing laundry for which she took some of her nitroglycerin tablets that she has had for the past few years but did not obtain significant relief. Because she did not want to seek medical attention she dealt with the pain on her own although it persisted and continued to increase over the last 24 hours. She states that the chest pain is exacerbated by cough which she has been dealing with for the past couple of weeks and by physical exertion. She states that she came to a point where she was significantly dyspneic and she could not handle the pain anymore and was brought in by EMS with family members present. She was given multiple doses of nitroglycerin on route which resolved her pain and currently says she is a 1 out of 10. On arrival here there was concern for ST segment elevations in the inferior leads and Dr. Andino was contacted who compared her EKG to previous and the changes seemed to be not be new stating that there is no emergent need for cardiac cath at this time but she will be seen in the morning and will proceed with cath then. He also says to be contacted if she develops pain again at which time consideration will be given to taking her emergently to the lab. In the interim she received loading dose of ticagrelor and has been started on heparin drip. She reports adherence to her medications however she states she continues to smoke about a pack a day. At this time she reports feeling comfortable while lying at rest. Past Med Surg Social Fam HX - Past Medical History Medical history: atrial fibrillation, CHF, COPD, GERD, hyperlipidemia, h ypertension, myocardial infarction, other Additional medical history: PE Psychiatric history: anxiety, depression - Past Surgical History Surgical History: angioplasty/stent, appendectomy, cholecystectomy, coronary bypass (CABG), other Additional surgical history: Quadruple bypass. Heart cath. Balloon stents in both legs. Rt ankle surgery. Bilat carpal tunnel release. - Social History Smoking Status: Current every day smoker Smokeless Tobacco Status: No Alcohol use: occasionally Drug use: none - Family History Mother Adopted: No Living Status: Hx Family Cardiac Disorders: Yes (PT REPORTED HER MOTHER HAD HEART PROBLEMS.) Father Adopted: No Family Member Ethnicity: Non- Living Status: Hx Family Cardiac Disorders: Yes Hx Family Respiratory Disorders: No Hx Family Cancer: Yes Hx Family GI Disorders: No Internal Medicine - H&P: Meds Albuterol Neb [Proventil Neb] 2.5 mg IH Q4HR 06/08/15 [History] Albuterol Sulfate [Albuterol Inhaler] 2 puff IH Q4HR 06/08/15 [History] Clopidogrel [Plavix] 75 mg PO DAILY 06/08/15 [History] Paroxetine [Paxil] 40 mg PO BID 06/08/15 [History] Isosorbide MONOnitrate (24 HR) [Imdur] 30 mg PO DAILY #30 tab.er.24h 10/25/15 [Rx] Nitroglycerin 0.4 mg SL Q5MIN PRN #100 tab.subl 10/25/15 [Rx] Simvastatin [Zocor] 40 mg PO HS #30 tablet 10/25/15 [Rx] Lisinopril [Zestril] 2.5 mg PO DAILY #30 tablet 10/30/15 [Rx] Furosemide [Lasix] 20 mg PO DAILY 09/03/16 [History] Warfarin [Coumadin] 5 mg PO DAILY 09/03/16 [History] Metoprolol [Lopressor] 50 mg PO BID 09/19/17 [History] Cefdinir [Omnicef] 300 mg PO BID #10 capsule 09/20/17 [Rx] HYDROcodone/Acet 7.5/325 mg [[place] 7.5-325 mg] 1 tab PO Q6H PRN #30 tablet 09/20/17 [Rx] predniSONE [PredniSONE] 40 mg PO DAILY 12 Days tablet 09/20/17 [Rx] Allergy/AdvReac Type Severity Reaction Status Date / Time atorvastatin [From Lipitor] AdvReac See Verified 09/18/17 04:24 Comments All Systems PM: A 10-system review of systems was performed and is negative for pertinent fin dings except as documented above in the HPI. - Constitutional Vitals: Temp Pulse Resp BP Pulse Ox 99.0 F 98 19 125/90 100 07/05/18 21:23 07/05/18 23:11 07/05/18 23:11 07/05/18 23:11 07/05/18 23:11 Exam: Vitals: Reviewed General: Obese, NAD Skin: Warm and supple. HEENT: Moist mucous membranes. No conjunctivae pallor. Neck: No lymphadenopathy. No JVD. No carotid bruits. No palpable thyroid. Chest: Normal thoracic expansion. Diminished breath sounds bilaterally but no wheezes or rhonchi. Heart: Irregularly irregular. No pulse deficit. Abdomen: soft and non-tender to palpation. No peritoneal reaction. Extremities: No clubbing, cyanosis or edema. No calf tenderness. Normal distal pulses. Cutaneous hyperpigmentation noted on lower legs. Neurological: Awake, alert and oriented to person, place and time. No focal deficits. Psych: Affect appropriate. Internal Med - H&P Results - Labs CBC & Chem 7: 07/05/18 21:29 07/05/18 21:29 Labs: Short CBC 07/05/18 Range/Units 21:29 WBC 15.4 H D (4.3-11.1) K/mcL Hgb 13.9 D (11.5-15.4) g/dL Hct 41.7 (35.3-44.9) % Plt Count 215 (140-400) K/mcL Neutrophils # 10.3 H (1.6-8.9) K/mcL BMP 07/05/18 21:29 Sodium 140 Potassium 3.7 Chloride 110 H Carbon Dioxide 22 L BUN 26 H Creatinine 1.11 Glucose 98 Calcium 9.6 Cardiac Enzymes 07/05/18 Range/Units 21:29 Troponin I 0.05 H* (< 0.04) ng/mL - Impressions ITS Impressions Chest X-Ray 07/05/18 22:12 IMPRESSION: No acute findings. D/ / Megan Spaulding MD / Megan Spaulding MD Interpreting Provider: Megan Spaulding MD - Assessment and plan (1) ACS (acute coronary syndrome) Current Visit: Yes Status: Acute Assessment and plan: EKG initially concerning for STEMI; reviewed by Dr Andino and appears to not be new changes. Currently clinically and hemodynamically stable. Low level troponin elevation; seen to have had much higher in the past. Will continue heparin infusion, antiplatelet therapy, serial EKGs, cardiac monitoring, trend troponins. NPO except medications. Cardiology consultation requested. (2) PAD (peripheral artery disease) Current Visit: Yes Status: Acute Assessment and plan: Asymptomatic at this time. Will remain on statin and antiplatelet therapy. (3) Atrial fibrillation Current Visit: Yes Status: Chronic Assessment and plan: Rate controlled. On warfarin with therapeutic INR. Will remain on hold for now while on heparin. Qualifiers: Atrial fibrillation type: chronic Qualified Code(s): I48.2 - Chronic atrial fibrillation (4) CAD (coronary artery disease) Current Visit: Yes Status: Chronic Assessment and plan: Extensive history. Continue nitrates, statin, antiplatelet. Smoking cessation advised. Qualifiers: Coronary Disease-Associated Artery/Lesion type: bypass graft [place] vs. transplanted heart: [place] heart Associated angina: without angina Qualified Code(s): I25.810 - Atherosclerosis of coronary artery bypass graft(s) without angina pectoris (5) CHF (congestive heart failure) Current Visit: Yes Status: Chronic Assessment and plan: No signs of acute decompensation at this time. Will obtain repeat echo in the morning. Qualifiers: Qualified Code(s): I50.22 - Chronic systolic (congestive) heart failure (6) CKD (chronic kidney disease), stage III Current Visit: Yes Status: Chronic Assessment and plan: Stable. Medications to be renally adjusted as needed. (7) HLD (hyperlipidemia) Current Visit: Yes Status: Chronic Assessment and plan: On statin therapy. Qualifiers: Hyperlipidemia type: unspecified Qualified Code(s): E78.5 - Hyperlipidemia, unspecified (8) HTN (hypertension) Current Visit: Yes Status: Chronic Assessment and plan: Resume oral agents. Qualifiers: Hypertension type: essential hypertension Qualified Code(s): I10 - Essential (primary) hypertension (9) Tobacco abuse Current Visit: Yes Status: Chronic Assessment and plan: Counseled extensively. Resources made available. - Time Spent With Patient Total time spent is greater than 50% in coordination of care (as documented) at patient's floor/unit and/or counseling patient: Greater than 35 minutes
[2018-07-06] MEDS: Benzonatate 100 MG CAPSULE PO PRN ×2 (00:53→05:08)
[2018-07-06] MEDS: Albuterol 2.5 MG/3 ML NEBULIZER IH SCH ×6 (03:40→20:31)
[2018-07-06 04:30] LABS: Basophils % 0.1 %; Eosinophils # 0.3 K/mcL (0.0-0.6); Eosinophils % 1.8 %; Hematocrit 41.9 % (35.3-44.9); Hemoglobin 14.2 g/dL (11.5-15.4); Immature Granulocytes % 0.4 % (0-4); Lymphocytes # 3.9 K/mcL (0.6-4.6); Lymphocytes % 25.9 %; Mean Corpuscular HGB Conc 33.9 g/dL (31.6-35.5); Mean Corpuscular Volume 85.5 fL (83.0-100.0); Mean Platelet Volume 10.7 fL (9.4-12.4); Monocytes # 0.9 K/mcL (0.0-1.3); Monocytes % 5.7 %; Neutrophils # 9.9 K/mcL (1.6-8.9); Platelet Count 207 K/mcL (140-400); Red Cell Distribution Width 19.7 % (11.5-14.5); Segmented Neutrophils % 66.1 %
[2018-07-06 04:38] LABS: INR 2.7
[2018-07-06 04:41] LABS: Activated Partial Thrombo Time 86.3 Seconds (26.0-36.0)
[2018-07-06 04:48] LABS: BUN/Creatinine Ratio 25 (6-26); Blood Urea Nitrogen 26 mg/dL (8-23); Calcium 9.5 mg/dL (8.6-10.3); Carbon Dioxide 21 mEq/L (23-29); Chloride 109 mEq/L (98-107); Glucose 107 mg/dL (70-105); Osmolality,Calculated 293 (280-300); Potassium 3.7 mEq/L (3.5-5.1); Sodium 139 mEq/L (136-145); eGFR For Non-African Americans 55 (> 60)
--- NOTE | 2018-07-06 05:47 | Event Note ---
Date of Encounter: 07/06/18 Time of Encounter: 05:46 The patient has remained clinically and hemodynamically stable. Chest pain free. EKG done on arrival to unit does not show the earlier concerns for ST segment elevations. In sinus rhythm. Troponin repeat is 0.04.
[2018-07-06] MEDS ORDERED: GuaiFENesin Liq 200 MG/10 ML UDC PO PRN (07:00)
--- NOTE | 2018-07-06 08:17 | Cardiology Consult Note ---
<Mary Grace Miller - Last Filed: 07/06/18 11:35> Date of Encounter: 07/06/18 Time of Encounter: 08:45 Assessment and Plan (1) Elevated troponin Current Visit: Yes Status: Acute Midly adynamic troponin elevation in the setting of COPD exacerbation. ECG is abnormal; however no changes from previous--see event note from Dr. Andino. No chest pain upon exam; patient reports chest discomfort different that prior angina. Now described as pleuritic. Discontinue heparin gtt as INR is therapeutic at 2.7. Continue home CV medications, will optimize BB for hx of ICMP. No indication for cardiac rehab. No further inpatient testing recommended, follow-up with Dr. Bonita Benitez as scheduled. (2) Ischemic cardiomyopathy Current Visit: No Status: Acute Hx of ICMP with EF ~30%. ICD implant has been discussed on multiple occasions, continues to decline. Last [facility] 10/2015. Continue aggressive medical therapy for CAD. Clinically appears euvolemic upon exam. Will optimize medical therapy and change lopressor to Toprol XL--start in AM. Will uptitrate ACEi to 5 mg day. Continue CHF restrictions including Na/fluid restricted diet, daily weights. (3) Atrial fibrillation Current Visit: Yes Status: Chronic Hx of PAF on Coumadin. INR therapeutic, 2.7. Goal 2-3. Continue current CV medications. NSR since admission. Qualifiers: Atrial fibrillation type: paroxysmal Qualified Code(s): I48.0 - Paroxysmal atrial fibrillation (4) COPD exacerbation Current Visit: No Status: Acute Mgmt per primary service. Discussion w patient/family: The assessment and plan as outlined above was discussed with the patient and/or family members who expressed understanding and agreement. All questions were answered. Thank you for involving us in the care of your patient. Please call with any questions. The patient will be discussed and reviewed with Dr. Phillips; changes to be made accordingly. History of Present Illness Consult date: 07/06/18 Requesting physician: Simona Boudreaux Consult reason: Elevated troponin Chief complaint: cough, shortness of breath History of present illness: Ms. Christian is a 62 year old female with PMHx significant of COPD, tobacco use, CAD s/p CABG, s/p PCI, ICMP with reduced LVEF, PAF, HTN who presented to the ED with complaints of worsening shortness of breath associated with cough over the past 2+ weeks. Associated symptoms include sputum production and chest discomfo rt that occurs with cough. Upon arrival to the ED troponin was mildly elevated and the patient was started on heparin gtt; of note, patient is on coumadin (INR therapeutic) for afib. Prior CV testin/18 Echocardiogram: LVEF 30%, globally reduced, moderately dilated left ventricle, despite the use of contrast, not all LV segments were well visualized. Overall, LV function appeared globally reduced, LVEF 30%. There is a large aneurysm of the anterolateral and inferolateral segments of the left ventricle. Suboptimal image quality, but measures approximately 5.2 cm x 5.7 cm. No obvious thrombus visualized within the aneurysm. Indeterminate diastolic function.Right ventricle was not well visualized. Unable to estimate RVSP due to lack of TR jet. No significant valvular dysfunction. Echocardiogram 01/26/16: Technically challenging study with suboptimal windows. LVEF 30-35%. Even with use of Definity, LV wall segmental wall motion was not well evaluated. There is significant aneurysmal dilation of the LV anterolateral and inferolateral barnett. No evidence for thrombus with use of Definity. RV is not well evaluated. Mild pulmonic regurgitation. IVC is not visualized for estimate of RVSP. Cardiac catheterization 10/28/15: Impressions: There is severe three vessel coronary artery disease. All crow vessels are chronic total occlusions. There is severe LV Dysfunction EF 35% S/P CABG 3 of 4 patent bypass grafts. Stent placed from a prior procedure in the Saphenous Vein Graft to the diagonal is patent. Ejection Fraction: 35% There is a 60% stenosis in the LMCA; There is a 100% stenosis in the Proximal LAD; There is a 100% stenosis in the Proximal Circumflex- [employer]; There is a 100% stenosis in the Proximal RCA- [employer]. Grafts * The saphenous vein graft to the 1st Diagonal is patent, has a 40% proximal lesion, patent stent in mid portion of graft, 40% distal lesion * The saphenous vein graft to the Right PDA is patent, has a 50% proximal stenosis. * The left internal mammary graft to the Mid LAD is patent, 70% stenosis in mid LAD at anastomosis of STALEY graft. * Y graft to the 1st Marginal is occluded- noted on previous caths. Past Med Surg Social Fam HX - Past Medical History Attestation: Yes The following information was validated with the patient. Source: patient Medical history: atrial fibrillation, CHF, COPD, GERD, hyperlipidemia, hypertension, myocardial infarction, other Additional medical history: PE Psychiatric history: anxiety, depression - Past Surgical History Surgical History: angioplasty/stent, appendectomy, cholecystectomy, coronary bypass (CABG), other Additional surgical history: Quadruple bypass. Heart cath. Balloon stents in both legs. Rt ankle surgery. Bilat carpal tunnel release. - Social History Smoking Status: Current every day smoker Smokeless Tobacco Status: No Alcohol use: occasionally Drug use: none - Family History Mother Adopted: No Living Status: Hx Family Cardiac Disorders: Yes (PT REPORTED HER MOTHER HAD HEART PROBLEMS.) Father Adopted: No Family Member Ethnicity: Non- Living Status: Hx Family Cardiac Disorders: Yes Hx Family Respiratory Disorders: No Hx Family Cancer: Yes Hx Family GI Disorders: No Medications and Allergies Isosorbide MONOnitrate (24 HR) [Imdur] 30 mg PO DAILY #30 tab.er.24h 10/25/15 [Rx] Nitroglycerin 0.4 mg SL Q5MIN PRN #100 tab.subl 10/25/15 [Rx] Simvastatin [Zocor] 40 mg PO HS #30 tablet 10/25/15 [Rx] Lisinopril [Zestril] 2.5 mg PO DAILY #30 tablet 10/30/15 [Rx] Furosemide [Lasix] 20 mg PO DAILY PRN 09/03/16 [History] Metoprolol [Lopressor] 50 mg PO BID 09/19/17 [History] HYDROcodone/Acet 7.5/325 mg [[place] 7.5-325 mg] 1 tab PO Q6H PRN #30 tablet 09/20/17 [Rx] predniSONE [PredniSONE] 40 mg PO DAILY 12 Days tablet 09/20/17 [Rx] Allopurinol [Zyloprim 100 MG] 100 mg PO DAILY 07/06/18 [History] Clopidogrel [Plavix] 75 mg PO DAILY 07/06/18 [History] PARoxetine HCl [Paroxetine HCl] 60 mg PO DAILY 07/06/18 [History] Spironolactone 25 mg PO DAILY 07/06/18 [History] Warfarin Sodium 4 mg PO SUTUWEFRSA 07/06/18 [History] Warfarin Sodium 6 mg PO MOTH 07/06/18 [History] Allergy/AdvReac Type Severity Reaction Status Date / Time atorvastatin [From Lipitor] AdvReac See Verified 07/06/18 13:55 Comments All Systems Review: The remainder of the systems were reviewed and are negative - Cardiovascular Cardiovascular: as per HPI Physical Examination Vital Signs, Last 4 Hours Temp Pulse Resp BP Pulse Ox 07/06/18 07:37 14 99 07/06/18 07:21 99.0 F 117 15 160/103 97 General: Conversant HEENT: Atraumatic, Normocephaly Cardiac: Reg Rate and Rhythm, Normal S1 and S2 Lungs: Other (significant wheezing; coarse breath sounds on exam ) Neuro: Alert and responsive Abdomen: Soft Skin: No rashes noted on visualized skin Musculoskeletal: No Chest Wall Tenderness Extremities: No Edema, Normal Pulses Results 07/06/18 04:15 07/06/18 04:15 Lab Results 07/05/18 07/05/18 07/05/18 21:29 21:29 21:29 WBC 15.4 H D Hgb 13.9 D Hct 41.7 Plt Count 215 INR 2.8 APTT 32.9 Sodium 140 Potassium 3.7 Chloride 110 H Carbon Dioxide 22 L BUN 26 H Creatinine 1.11 Glucose 98 Calcium 9.6 Magnesium 1.7 Troponin I 0.05 H* 07/06/18 07/06/18 07/06/18 04:15 04:15 04:15 WBC 15.0 H Hgb 14.2 Hct 41.9 Plt Count 207 INR 2.7 APTT 86.3 H D Sodium Potassium Chloride Carbon Dioxide BUN Creatinine Glucose Calcium Magnesium Troponin I 0.04 H* 07/06/18 04:15 WBC Hgb Hct Plt Count INR APTT Sodium 139 Potassium 3.7 Chloride 109 H Carbon Dioxide 21 L BUN 26 H Creatinine 1.02 Glucose 107 H Calcium 9.5 Magnesium Troponin I Active Medications Hydrocodone Bitart/Acetaminophen ([place] 7.5-325 Mg) 1 tab PO Q6H PRN PRN Reason: Pain Stop: 01/04/19 23:18 Albuterol Sulfate (Proventil Neb) 2.5 mg IH [id number] RENU; Protocol Stop: 01/05/19 12:01 Furosemide (Lasix) 20 mg PO DAILY [facility] Stop: 01/05/19 09:01 Guaifenesin (Robitussin/Dm) 10 ml PO Q6HR [facility] Stop: 01/05/19 12:01 Isosorbide Mononitrate (Imdur) 30 mg PO DAILY [facility] Stop: 01/05/19 09:01 Lisinopril (Zestril) 2.5 mg PO DAILY [facility]; Protocol Stop: 01/05/19 09:01 Metoprolol Tartrate (Lopressor) 50 mg PO BID [facility] Stop: 01/05/19 09:01 Nitroglycerin (Nitroglycerin) 0.4 mg SL Q5MIN PRN PRN Reason: Chest Pain Stop: 01/04/19 23:18 Paroxetine HCl (Paxil) 60 mg PO DAILY [facility]; Protocol Stop: 01/05/19 09:01 Simvastatin (Zocor) 40 mg PO HS [facility]; Protocol Stop: 01/05/19 21:01 Ticagrelor (Brilinta) 90 mg PO BID [facility] Stop: 01/05/19 09:01 - Imaging and Cardiology Echo: report reviewed Cardiac cath: report reviewed Other Results: 12 hour tele: avg [id number] ST. - EKG Interpretation EKG results cardiology: personally reviewed Consult Discharge Plan - Plan Referrals: Michelle Crocker, [facility]ER [Primary Care Provider] - (web request sent on 07/06) <Renay Phillips - Last Filed: 07/06/18 17:40> - Attending Attestation Patient was seen and evaluated independently by me. Findings, assessment and plan were discussed at length with patient, questions answered. Agree with nurse practitioner's documentation. Addition as follows, 62 yo CF ho HFrEF EF 30% declining ICD, ICMP CABG 3/4 patent grafts , PAF on warfarin, COPD. P/w worse 2 wks of productive cough, wheeze and pleuritic cp with cough only. Hypertensive 160, Chronic ST changes on ECG, trop minimal elevation flat A: Type 2 NSTEMI, minimal troponin elevation HTN, BP needs better ctr COPD exacerbation CAD s/p CABG, no angina ICMP, HFrEF no exacerbation EF 30% declining ICD PAF, in SR, INR at goal P: switch lopressor to toprol uptitration of lisinopril as BP tolerated, if cough worse, switch to losartan no plan for LHC or stress test f/u Cardiology clinic Renay Phillips MD, PhD Assessment and Plan Discussion w patient/family: The assessment and plan as outlined above was discussed with the patient and/or family members who expressed understanding and agreement. All questions were answered. Thank you for involving us in the care of your patient. Please call with any questions. History of Present Illness History of present illness: Ms. Christian is a 62 year old female All Systems Review: The remainder of the systems were reviewed and are negative Physical Examination Vital Signs, Last 4 Hours Temp Pulse Resp BP Pulse Ox 07/06/18 16:37 14 99 07/06/18 15:30 99.1 F 79 18 134/75 98 Results 07/06/18 04:15 07/06/18 04:15 Lab Results 07/05/18 07/05/18 07/05/18 21:29 21:29 21:29 WBC 15.4 H D Hgb 13.9 D Hct 41.7 Plt Count 215 INR 2.8 APTT 32.9 Sodium 140 Potassium 3.7 Chloride 110 H Carbon Dioxide 22 L BUN 26 H Creatinine 1.11 Glucose 98 Calcium 9.6 Magnesium 1.7 Troponin I 0.05 H* 07/06/18 07/06/18 07/06/18 04:15 04:15 04:15 WBC 15.0 H Hgb 14.2 Hct 41.9 Plt Count 207 INR 2.7 APTT 86.3 H D Sodium Potassium Chloride Carbon Dioxide BUN Creatinine Glucose Calcium Magnesium Troponin I 0.04 H* 07/06/18 07/06/18 04:15 09:23 WBC Hgb Hct Plt Count INR APTT Sodium 139 Potassium 3.7 Chloride 109 H Carbon Dioxide 21 L BUN 26 H Creatinine 1.02 Glucose 107 H Calcium 9.5 Magnesium Troponin I 0.04 H*
[2018-07-06] MEDS: *HR* Ticagrelor 90 MG TABLET PO SCH ×2 (11:33→20:35)
[2018-07-06] MEDS: Isosorbide MONOnitrate (24 HR) 30 MG TAB.ER.24H PO SCH (11:33)
[2018-07-06] MEDS: Furosemide 20 MG TABLET PO SCH (11:33)
[2018-07-06] MEDS ORDERED: GuaiFENesin Liq 200 MG/10 ML UDC PO SCH (12:00)
[2018-07-06] MEDS: *HR* HYDROcodone/Acet 7.5/325 mg TABLET PO PRN (16:18)
--- NOTE | 2018-07-06 16:57 | Internal Med Progress Note ---
Hospitalist Progress Note - Encounter Date of Encounter: 07/06/18 Time of Encounter: 09:00 - Subjective Interval History: Pt has SOB and dry cough. Denies CP. On NC O2. - Exam Vitals: Temp Pulse Resp BP Pulse Ox 99.1 F 79 14 134/75 99 07/06/18 15:30 07/06/18 15:30 07/06/18 16:37 07/06/18 15:30 07/06/18 16:37 Exam: Vitals: Reviewed General: Obese, NAD Skin: Warm and supple. HEENT: Moist mucous membranes. No conjunctivae pallor. Neck: No lymphadenopathy. No JVD. No carotid bruits. No palpable thyroid. Chest: Normal thoracic expansion. Coarse breath sounds bilaterally but no wheezes or rhonchi. Heart: Irregularly irregular. No pulse deficit. Abdomen: soft and non-tender to palpation. No peritoneal reaction. Extremities: No clubbing, cyanosis or edema. No calf tenderness. Normal distal pulses. Cutaneous hyperpigmentation noted on lower legs. Neurological: Awake, alert and oriented to person, place and time. No focal deficits. Psych: Affect appropriate. - Assessment and Plan (1) HTN (hypertension) Current Visit: Yes Status: Chronic Assessment and Plan: Cont home meds. (2) CAD (coronary artery disease) Current Visit: Yes Status: Chronic Assessment and Plan: Extensive history. Continue nitrates, statin, antiplatelet. Smoking cessation advised. - 3 sets of troponin 0.05-0.04-0.04 - Cardio consult appreciated. (3) CKD (chronic kidney disease), stage III Current Visit: Yes Status: Chronic Assessment and Plan: Stable. Medications to be renally adjusted as needed. (4) Tobacco abuse Current Visit: Yes Status: Chronic Assessment and Plan: Counseled extensively. Resources made available. Nicotine patch. (5) Atrial fibrillation Current Visit: Yes Status: Chronic Assessment and Plan: Cont Home meds metoprolol po, HR is well controlled. On coumadin, INR therapeutic. (6) CHF (congestive heart failure) Current Visit: Yes Status: Chronic Assessment and Plan: Systolic CHF with EF 30%. No signs of acute decompensation at this time. Will obtain repeat echo. - Cont home meds lasix po and metoprolol. - Add low dose lisinopril per cardio. (7) HLD (hyperlipidemia) Current Visit: Yes Status: Chronic Assessment and Plan: On statin therapy. (8) ACS (acute coronary syndrome) Current Visit: Yes Status: Acute Assessment and Plan: Pt is pain free now, cardio consult saw pt, no further cardio work up so far, ACS ruled out. (9) PAD (peripheral artery disease) Current Visit: Yes Status: Acute Assessment and Plan: Asymptomatic at this time. Will remain on statin and antiplatelet therapy. (10) Acute bronchitis Current Visit: No Status: Acute Assessment and Plan: Increased cough, CXR negative. Consider acute bronchitis. - Symptomatic treatment - Respiratory viral penal. (11) Leukocytosis Current Visit: Yes Status: Acute Assessment and Plan: No signs of infection, no fever. Possibly reactive, no indication for abx now, cont closely monitor pt. - Time Spent with Patient Total time spent is greater than 50% in coordination of care (as documented) at patient's floor/unit and/or counseling patient: On coumadin. 25 - 35 minutes Plan of Care Discussed with: patient Internal Medicine: Result - Labs CBC & Chem 7: 07/06/18 04:15 07/06/18 04:15 Labs: Short CBC 07/05/18 07/06/18 Range/Units 21:29 04:15 WBC 15.4 H D 15.0 H (4.3-11.1) K/mcL Hgb 13.9 D 14.2 (11.5-15.4) g/dL Hct 41.7 41.9 (35.3-44.9) % Plt Count 215 207 (140-400) K/mcL Neutrophils # 10.3 H 9.9 H (1.6-8.9) K/mcL BMP 07/05/18 07/06/18 21:29 04:15 Sodium 140 139 Potassium 3.7 3.7 Chloride 110 H 109 H Carbon Dioxide 22 L 21 L BUN 26 H 26 H Creatinine 1.11 1.02 Glucose 98 107 H Calcium 9.6 9.5 Cardiac Enzymes 07/05/18 07/06/18 07/06/18 Range/Units 21:29 04:15 09:23 Troponin I 0.05 H* 0.04 H* 0.04 H* (< 0.04) ng/mL - ABG Interpretation ABG results: PT/INR, D-dimer PT 30.0 Seconds (9.4-12.1) H 07/06/18 04:15 - Impressions Impressions Chest X-Ray 07/05/18 22:12 IMPRESSION: No acute findings. D/ / Megan Spaulding MD / Megan Spaulding MD Interpreting Provider: Megan Spaulding MD Consult Discharge Plan - Plan Referrals: Michelle Crocker, [employer]ER [Primary Care Provider] - (web request sent on 07/06) (1) HTN (hypertension) Qualifiers: Hypertension type: essential hypertension Qualified Code(s): I10 - Essential (primary) hypertension (2) CAD (coronary artery disease) Qualifiers: Coronary Disease-Associated Artery/Lesion type: bypass graft [place] vs. transplanted heart: [place] heart Associated angina: without angina Qualified Code(s): I25.810 - Atherosclerosis of coronary artery bypass graft(s) without angina pectoris (5) Atrial fibrillation Qualifiers: Atrial fibrillation type: paroxysmal Qualified Code(s): I48.0 - Paroxysmal atrial fibrillation (6) CHF (congestive heart failure) Qualifiers: Qualified Code(s): I50.22 - Chronic systolic (congestive) heart failure (7) HLD (hyperlipidemia) Qualifiers: Hyperlipidemia type: unspecified Qualified Code(s): E78.5 - Hyperlipidemia, unspecified (10) Acute bronchitis Qualifiers: Bronchitis organism: unspecified organism Qualified Code(s): J20.9 - Acute bronchitis, unspecified (11) Leukocytosis Qualifiers: Leukocytosis type: leukemoid reaction Qualified Code(s): D72.823 - Leukemoid reaction
[2018-07-06] MEDS ORDERED: Warfarin perPT PO PRN (18:00)
[2018-07-07] MEDS: Albuterol 2.5 MG/3 ML NEBULIZER IH SCH ×5 (04:04→15:43)
[2018-07-07 05:59] LABS: Basophils % 0.2 %; Eosinophils # 0.4 K/mcL (0.0-0.6); Eosinophils % 2.3 %; Hematocrit 43.6 % (35.3-44.9); Hemoglobin 14.6 g/dL (11.5-15.4); Immature Granulocytes % 0.5 % (0-4); Lymphocytes # 3.5 K/mcL (0.6-4.6); Lymphocytes % 21.1 %; Mean Corpuscular HGB Conc 33.5 g/dL (31.6-35.5); Mean Corpuscular Hemoglobin 28.7 pg (28.0-33.3); Mean Corpuscular Volume 85.8 fL (83.0-100.0); Mean Platelet Volume 10.8 fL (9.4-12.4); Monocytes % 6.2 %; Neutrophils # 11.7 K/mcL (1.6-8.9); Platelet Count 228 K/mcL (140-400); Red Blood Count 5.08 M/mcL (3.82-4.97); Red Cell Distribution Width 19.4 % (11.5-14.5); Segmented Neutrophils % 69.7 %
[2018-07-07 06:15] LABS: Calcium 9.7 mg/dL (8.6-10.3); Potassium 3.8 mEq/L (3.5-5.1)
[2018-07-07] MEDS ORDERED: Spironolactone 25 MG TABLET PO SCH (09:00)
[2018-07-07] MEDS ORDERED: Metoprolol XL (24 HR) Succ 50 MG TAB.ER.24H PO SCH (09:00)
[2018-07-07] MEDS: Furosemide 20 MG TABLET PO SCH (09:37)
[2018-07-07] MEDS: Isosorbide MONOnitrate (24 HR) 30 MG TAB.ER.24H PO SCH (09:37)
[2018-07-07] MEDS: *HR* Ticagrelor 90 MG TABLET PO SCH (09:37)
[2018-07-07] MEDS: *HR* HYDROcodone/Acet 7.5/325 mg TABLET PO PRN (10:03)
--- NOTE | 2018-07-07 11:30 | Discharge Summary ---
Orders not resulted at time of discharge: Pending orders 07/05/18 21:35 CL Cardiac Catheterization [CL] Routine 07/05/18 21:43 CL Cardiac Catheterization [CL] Stat 07/08/18 04:00 INR/PT [Prothrombin Time INR] [COAG] AM 0400 07/09/18 04:00 INR/PT [Prothrombin Time INR] [COAG] AM 0400 07/10/18 04:00 INR/PT [Prothrombin Time INR] [COAG] AM 0400 07/11/18 04:00 INR/PT [Prothrombin Time INR] [COAG] AM 0400 Date of Encounter: 07/07/18 Time of Encounter: 11:22 - Discharge Diagnosis (1) HTN (hypertension) Priority: Secondary Status: Chronic Qualifiers: Hypertension type: essential hypertension Qualified Code(s): I10 - Essential (primary) hypertension (2) CAD (coronary artery disease) Priority: Primary Status: Acute Qualifiers: Coronary Disease-Associated Artery/Lesion type: bypass graft [place] vs. transplanted heart: [place] heart Associated angina: without angina Qualified Code(s): I25.810 - Atherosclerosis of coronary artery bypass graft(s) without angina pectoris (3) CKD (chronic kidney disease), stage III Priority: Secondary Status: Chronic (4) Tobacco abuse Priority: Secondary Status: Chronic (5) Ischemic cardiomyopathy Priority: Secondary Status: Chronic (6) Acute bronchitis Priority: Secondary Status: Acute Qualifiers: Bronchitis organism: unspecified organism Qualified Code(s): J20.9 - Acute bronchitis, unspecified (7) Elevated troponin Priority: Secondary Status: Acute Hospital course: Ms. Christian is a 62 year old female with an extensive history of COPD, coronary artery disease status post CABG and multiple stent placements as well as a left ventricle aneurysm, atrial fibrillation on warfarin, heart failure due to ischemic cardiomyopathy and peripheral vascular disease status post bilateral leg stents who presents to the ER due to complaints of chest pain. she was admited on 07/05 for possible ACS, cardiology was consulted. Midly adynamic troponin elevation in the setting of COPD exacerbation. ECG is abnormal; however no changes from previous , no recurrent chest pain . Continue home CV medications, cadiology increased lisinopril to 5 mg, and change to metoprolol to long acting XL for her ICMP. No indication for cardiac rehab. No further inpatient testing recommended, follow-up with Dr. Bonita Benitez as scheduled. Patient had recent COPD exacerbation, was placed on oral steroids by her PCP but not on antibiotics. She feels much better on room air 95% sats. Patient is going to be discharged and a follow-up was primary care physician for COPD exacerbation. Discharge discussed with: patient Time spent discussing smoking cessation with patient: more than 10 minutes - Time Spent with Patient Total time spent providing and/or coordinating discharge services: Greater than 30 minutes - Discharge Medications Prescriptions: GuaiFENesin/Dextromethorphan [Robitussin/Dm] 10 ml PO Q6HR #30 udc Lisinopril [Zestril] 5 mg PO DAILY #30 tablet Metoprolol XL (24 HR) Succ [Toprol Xl] 100 mg PO DAILY #30 tab.er.24h Home Medications: Isosorbide MONOnitrate (24 HR) [Imdur] 30 mg PO DAILY #30 tab.er.24h 10/25/15 [Rx] Nitroglycerin 0.4 mg SL Q5MIN PRN #100 tab.subl 10/25/15 [Rx] Simvastatin [Zocor] 40 mg PO HS #30 tablet 10/25/15 [Rx] Furosemide [Lasix] 20 mg PO DAILY PRN 09/03/16 [History] HYDROcodone/Acet 7.5/325 mg [[place] 7.5-325 mg] 1 tab PO Q6H PRN #30 tablet 09/20/17 [Rx] predniSONE [PredniSONE] 40 mg PO DAILY 12 Days tablet 09/20/17 [Rx] Allopurinol [Zyloprim 100 MG] 100 mg PO DAILY 07/06/18 [History] Clopidogrel [Plavix] 75 mg PO DAILY 07/06/18 [History] PARoxetine HCl [Paroxetine HCl] 60 mg PO DAILY 07/06/18 [History] Spironolactone 25 mg PO DAILY 07/06/18 [History] Warfarin Sodium 4 mg PO SUTUWEFRSA 07/06/18 [History] Warfarin Sodium 6 mg PO MOTH 07/06/18 [History] GuaiFENesin/Dextromethorphan [Robitussin/Dm] 10 ml PO Q6HR #30 udc 07/07/18 [Rx] Lisinopril [Zestril] 5 mg PO DAILY #30 tablet 07/07/18 [Rx] Metoprolol XL (24 HR) Succ [Toprol Xl] 100 mg PO DAILY #30 tab.er.24h 07/07/18 [Rx] Allergies/Adverse Reactions: Allergy/AdvReac Type Severity Reaction Status Date / Time atorvastatin [From Lipitor] AdvReac See Verified 07/06/18 13:55 Comments Date of admission: 07/05/18 23:49 Primary care physician: Michelle Crocker CNP Consults: 07/05/18 23:20 Consult to Cardiology [CONS] Routine Comment: Consulting Provider: Cardiology [facility] Reason for Consult: patient known to service. Admitted for ACS. To undergo LHC. Call Completed: Yes Anticipated date of discharge: 07/07/18 - Constitutional Vitals: Temp Pulse Resp BP Pulse Ox 97.4 F L 73 17 114/73 95 07/07/18 10:40 07/07/18 10:40 07/07/18 10:40 07/07/18 10:40 07/07/18 10:40 Exam: Vitals: Reviewed General: Obese, NAD Skin: Warm and supple. HEENT: Moist mucous membranes. No conjunctivae pallor. Neck: No lymphadenopathy. No JVD. No carotid bruits. No palpable thyroid. Chest: Normal thoracic expansion. Coarse breath sounds bilaterally but no wheezes or rhonchi. Heart: Irregularly irregular. No pulse deficit. Abdomen: soft and non-tender to palpation. No peritoneal reaction. Extremities: No clubbing, cyanosis or edema. No calf tenderness. Normal distal pulses. Cutaneous hyperpigmentation noted on lower legs. Neurological: Awake, alert and oriented to person, place and time. No focal deficits. Psych: Affect appropriate. - Patient Status Disposition: Home, Self-Care Condition: Good Functional capacity at discharge: independent ambulation Overall status at discharge: patient is back to baseline - Discharge Instructions Follow Up With: Michelle Crocker CNP [Primary Care Provider] - (web request sent on 07/06) Forms: ED Satisfaction Letter
[2018-07-07 15:05] VITALS: BP 103/63
--- NOTE | 2018-07-07 16:43 | Event Note ---
Date of Encounter: 07/07/18 Time of Encounter: 16:41 Patient c/o SOB with walking, we did 6 min walking test, she dropped O2 to88% on RA, patient is qualified for home home when exertion due to her COPD and CAD/CABG. discussed with ccase manager critical care to set up home O2
[2018-07-07] MEDS ORDERED: *HR* Warfarin 4 MG TABLET PO ONE (18:00)
--- NOTE | 2018-07-10 19:04 | Electrocardiograph Report ---
[address] [place], [place] [address] Test Date: 2018-07-05 Pat Name: Carin Christian Department: [id number] Room: 2A34 Gender: Hand Slitter: : 1955 Requested By: Simona Boudreaux Order Number: [id number] Reading MD: Gabriel Johnson Measurements Intervals [place] Rate: 74 P: GA: QRS: 16 QRSD: 138 T: 120 QT: 385 QTc: 428 Interpretive Statements ATRIAL FIBRILLATION INFERIOR LATERAL MYOCARDIAL INFARCTION, POSSIBLY RECENT IVCD Electronically Signed On 07-10-2018 19:03:13 EDT by Gabriel Johnson
--- NOTE | 2018-07-10 19:08 | Electrocardiograph Report ---
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
--- NOTE | 2018-07-10 19:09 | Electrocardiograph Report ---
[address] [place] [address] Test Date: 2018-07-06 Pat Name: Carin Christian Department: 109 Room: 2A Gender: F Aperture Mask Etcher: : 1955 Requested By: Bruno Wayne Order Number: [id number] Reading MD: Gabriel Johnson Measurements Intervals [place] Rate: 67 P: 17 AL: 139 QRS: 26 QRSD: 97 T: 121 QT: 405 QTc: 420 Interpretive Statements SINUS RHYTHM LATERAL T WAVE CHANGES SUGGESTIVE OF ISCHEMIA Electronically Signed On 07-10-2018 19:07:27 EDT by Gabriel Johnson
--- NOTE | 2018-07-10 19:12 | Electrocardiograph Report ---
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
== END 2018-07-07 17:08 | disposition home or self-care (01) | DRG 191 ==
LOC: EMEROOARM 21:21 → 2ANU 23:49 → SUATTDRO 23:49 → 2ANU 07-06 00:13
PROVIDERS: ADMIT Internal Medicine; ATTEND Hospitalist

== ENCOUNTER 2019-05-29 19:45 | Inpatient (IN) ==
[2019-05-30] MEDS ORDERED: *HR* Dextrose 50 % in Water (Syg) 50 ML SYRINGE IVP PRN (02:12)
[2019-05-30] MEDS ORDERED: Ondansetron ODT 4 MG TAB.RAPDIS SL PRN (02:12)
[2019-05-30] MEDS ORDERED: Dextrose Gel 15 GM/37.5 ML TUBE PO PRN ×2 (02:12)
[2019-05-30] MEDS ORDERED: Acetaminophen 325 MG TABLET PO PRN (02:12)
[2019-05-30] MEDS ORDERED: D5% in Water 1,000 ML IVC PRN (02:12)
[2019-05-30] MEDS ORDERED: Naloxone 0.4 MG/ML INJ IVP PRN (02:12)
[2019-05-30 03:22] LABS: Basophils % 0.2 %; Eosinophils # 0.2 K/mcL (0.0-0.6); Eosinophils % 1.2 %; Hematocrit 32.3 % (35.3-44.9); Hemoglobin 10.2 g/dL (11.5-15.4); Immature Granulocytes % 0.4 % (0-4); Lymphocytes # 3.7 K/mcL (0.6-4.6); Lymphocytes % 26.6 %; Mean Corpuscular HGB Conc 31.6 g/dL (31.6-35.5); Mean Corpuscular Hemoglobin 31.3 pg (28.0-33.3); Mean Corpuscular Volume 99.1 fL (83.0-100.0); Monocytes # 1.3 K/mcL (0.0-1.3); Monocytes % 9.5 %; Neutrophils # 8.6 K/mcL (1.6-8.9); Platelet Count 198 K/mcL (140-400); Red Blood Count 3.26 M/mcL (3.82-4.97); Red Cell Distribution Width 14.6 % (11.5-14.5); Segmented Neutrophils % 62.1 %; White Blood Count 13.8 K/mcL (4.3-11.1)
--- NOTE | 2019-05-30 03:22 | Internal Med History&Physical ---
Date of Encounter: 05/30/19 Time of Encounter: 03:15 Internal Medicine - H&P: HPI Chief complaint: abdominal pain Admitted From: Home Plans for Post Hospital Care: Home History of present illness: Ms. Christian is a 63 year old female with severe CAD status post CABG 2003, left ventricular aneurysm, A. fib on warfarin, ischemic cardiomyopathy HFrEF 30%, current smoker, PAD status post stenting presented to the ED for abdominal pain. Patient reported abdominal pain occurred 3 days ago epigastric sharp 10/10 rated when it first presented improved with time intermittently lasting for hours no association with food, trauma, or chest pain, vomiting, no alleviating or exacerbating factor. No association with fever, chills, shortness of breath, chest pain, diarrhea or dysuria. Patient reported nausea since incidence. Patient otherwise denies drinking and drugs. Reported hx of appendectomy, cholecystectemy previously. significant cardiac disease paternally. CODE STATUS confirmed full code. [id number] encounter at 1:30 AM. Past Med Surg Social Fam HX - Past Medical History Medical history: atrial fibrillation, CHF, COPD, GERD, hyperlipidemia, hypertension, myocardial infarction, other Additional medical history: PE Psychiatric history: anxiety, depression - Past Surgical History Surgical History: angioplasty/stent, appendectomy, cholecystectomy, coronary bypass (CABG), other Additional surgical history: Quadruple bypass. Heart cath. Balloon stents in both legs. Rt ankle surgery. Bilat carpal tunnel release. - Social History Smoking Status: Current every day smoker Smokeless Tobacco Status: No Alcohol use: occasionally Drug use: none - Family History Mother Adopted: No Living Status: Hx Family Cardiac Disorders: Yes (PT REPORTED HER MOTHER HAD HEART PROBLEMS.) Father Adopted: No Family Member Ethnicity: Non- Living Status: Hx Family Cardiac Disorders: Yes Hx Family Respiratory Disorders: No Hx Family Cancer: Yes Hx Family GI Disorders: No Internal Medicine - H&P: Meds Isosorbide MONOnitrate (24 HR) [Imdur] 30 mg PO DAILY #30 tab.er.24h 10/25/15 [Rx] HYDROcodone/Acet 7.5/325 mg [[place] 7.5-325 mg] 1 tab PO Q6H PRN #30 tablet 09/20/17 [Rx] Allopurinol [Zyloprim 100 MG] 100 mg PO DAILY 07/06/18 [History] Clopidogrel [Plavix] 75 mg PO DAILY 07/06/18 [History] PARoxetine HCl [Paroxetine HCl] 40 mg PO DAILY 07/06/18 [History] Spironolactone 25 mg PO DAILY 07/06/18 [History] Warfarin Sodium 4 mg PO SUTUWEFRSA 07/06/18 [History] Lisinopril [Zestril] 5 mg PO DAILY #30 tablet 07/07/18 [Rx] Metoprolol XL (24 HR) Succ [Toprol Xl] 100 mg PO DAILY #30 tab.er.24h 07/07/18 [Rx] Simvastatin [Zocor] 20 mg PO HS 05/29/19 [History] Allergy/AdvReac Type Severity Reaction Status Date / Time atorvastatin [From Lipitor] AdvReac See Verified 05/29/19 15:13 Comments All Systems PM: A 10-system review of systems was performed and is negative for pertinent findings except as documented above in the HPI. Review of systems: General: No unintentional weightloss, No fever Head: No headahce, No injury. Ears: No discharge, No earache Eyes: No drainage, No eye pain Mouth and Throat: No new ulcers, No pain Nose and Sinus: No new congestion, No pain, Respiratory: No cough, No sputum production, No dyspnea Cardiovascular: No chest pain, No palpitations. Gastrointestinal: + nausea, No vomiting. + abdominal pain. Genital Tract: No discharge, No pain Urinary Tract: No dysuria, No discharge. MSK: No new/worsening joint pain, No new/worsening muscle ache. Endocrine: No cold intolerance, No polyuria Psychological: No suicidal, No homocidal ideation. - Constitutional Vitals: Temp Pulse Resp BP Pulse Ox 97.7 F 66 15 89/53 96 05/30/19 01:32 05/30/19 01:32 05/30/19 01:32 05/30/19 01:32 05/30/19 01:32 Exam: General Appearance: Appearing as age, well-nourished in mild acute distress. Head: Atraumatic normocephalic Skin: Normal texture, normal turgor, warm, dry. Eyes: Conjunctivae not pale with no erythema, drainage, or ulcers. Anicteric. Neck: No Lymphadenopathy in the anterior/posterior cervical chain. No thyromegaly, masses or ulcers. Trachea midline. Heart: RRR, no murmurs. Capillary refill 3 seconds Lungs: No accessory muscle usage, lungs clear to auscultation bilaterally, basilar wheezes. Extremities: No pitting edema, No clubbing, No cyanosis. Abdomen: Non-distended, normoactive bowel sounds. epigastric tenderness,no peritoneal signs. no guarding Neuro: AOx3 with no new sensory loss or focal deficits. MSK: Strength 5/5 Upper extremity equal bilaterally. Strength 5/5 Lower extremity equal bilaterally Internal Med - H&P Results - Labs CBC & Chem 7: 05/30/19 03:05 05/30/19 03:05 - Summary of Assessment and Plan Summary of Assessment and Plan: 1.Sepsis with suspected GI source but unclear. No respiratory symptoms, urinary symptoms. Suspected GI. CT chest and abdomen- negative for pneumoni and colitis. Blood cultures, procal pending. Switched abx to levaquin and metronidazole Likely gastritis. Consulted surgery for EGD. 2.Normocytic Anemia: Anemia panel ordered. 3. Elevated troponin: Likely demand ischemia. Currently asymptomatic. EKG reviewed, Trend. 4.Supratherapeutic INR: No evidence of bleeding. Received 10 mg of vitamin K in the ED. Held warfarin. DVT prophylaxis: contraindicated. Dispo: < 2 day stay. - Time Spent With Patient Total time spent is greater than 38 minutes 50% in coordination of care (as documented) at patient's floor/unit and/or counseling patient: Greater than 35 minutes - VTE Reasons for not Prescribing Prophylaxis: Not indicated-Anticoagulated or INR therapeutic
[2019-05-30 03:34] LABS: INR 4.7; Prothrombin Time 53.1 Seconds (9.4-12.1)
[2019-05-30 03:40] LABS: Albumin/Globulin Ratio 1.3 (1.1-2.2); Bilirubin,Total 0.6 mg/dL (0.3-1.0); Chol/HDL Ratio 4.6 (0-4.9); Globulin 2.3 g/dL (2.4-3.5); Magnesium 1.6 mg/dL (1.6-2.6); Phosphorous 3.4 mg/dL (2.7-4.5); Potassium 4.5 mEq/L (3.5-5.1); Total Protein 5.3 g/dL (6.4-8.9)
[2019-05-30] MEDS ORDERED: Ringers Solution, Lactated 1,000 ML IVC SCH (06:30)
[2019-05-30 07:37] LABS: Immature Reticulocyte % 11.5 % (11.0-38.0); Retculocyte # 0.04 M/mcL (0.05-0.10); Reticulocyte % 1.4 % (1.6-2.8)
[2019-05-30 07:46] LABS: VBG HCO3 24 mEq/L (21-27); VBG PCO2 41 mmHg (41-51); VBG PH 7.37 pH Units (7.32-7.42); VBG PO2 190 mmHg (25-50)
[2019-05-30] MEDS ORDERED: MetroNIDAZOLE 500 MG/100 ML 500 MG/100 ML BAG IVPB SCH (08:00)
[2019-05-30 08:02] LABS: % Iron Saturation 15 % (15-50); Iron 34 mcg/dL (50-170); Transferrin 160 mg/dL (203-362)
[2019-05-30] MEDS: Metoprolol XL (24 HR) Succ 50 MG TAB.ER.24H PO SCH (08:13)
[2019-05-30] MEDS: Isosorbide MONOnitrate (24 HR) 30 MG TAB.ER.24H PO SCH (08:13)
[2019-05-30 08:17] LABS: Ferritin 178 ng/mL (10-120)
[2019-05-30 08:23] LABS: Folate 5.7 ng/mL (3.0-16.0)
[2019-05-30] MEDS ORDERED: Spironolactone 25 MG TABLET PO SCH (09:00)
[2019-05-30] MEDS ORDERED: levoFLOXacin 750 MG/150 ML 750 MG/150 ML BAG IVPB SCH (09:00)
[2019-05-30 10:17] LABS: Procalcitonin 0.1 ng/mL (0.00-0.15)
--- NOTE | 2019-05-30 12:06 | Cardiology Consult Note ---
Date of Encounter: 05/30/19 Time of Encounter: 11:30 Assessment and Plan (1) Left ventricular aneurysm Current Visit: Yes Status: Acute Known LV aneurysm dating back to 2016. CT scan shows increase in aneurysm size since 2018. Recheck TTE to further evaluate. Continue Coumadin, goal INR 2-3. Hold coumadin until INR falls below 3. Recommend pharmacy to dose. Recommend against Vitamin K administration. (2) Elevated troponin Current Visit: Yes Status: Acute Mild troponin elevation the setting of possible sepsis; presentation is not consistent with ACS. Patient denies chest pain/discomfort. Reports x3 day hx of abdominal pain--improved with GI cocktail. No ECG changes from previous. Continue home medications including betablocker, statin, plavix. (3) Ischemic cardiomyopathy Current Visit: Yes Status: Chronic Hx of ICMP with reduced LVEF, 30%. NYHA class II symptoms. Declines ICD implant on numerous occasions. No chest pain reported. Continue home CV medications including BB, statin, and nitrates. (4) Atrial fibrillation Current Visit: Yes Status: Chronic Hx of PAF on Coumadin. Rate controlled upon exam, continue home medications. Qualifiers: Atrial fibrillation type: paroxysmal Qualified Code(s): I48.0 - Paroxysmal atrial fibrillation (5) Supratherapeutic INR Current Visit: No Status: Acute (6) Abdominal pain Current Visit: Yes Status: Acute Mgmt per primary service. Qualifiers: Abdominal location: unspecified location Qualified Code(s): R10.9 - Unspe cified abdominal pain Discussion w patient/family: The assessment and plan as outlined above was discussed with the patient and/or family members who expressed understanding and agreement. All questions were answered. Thank you for involving us in the care of your patient. Please call with any questions. The patient will be discussed and reviewed with Dr. Benitez; changes to be made accordingly. History of Present Illness Consult date: 05/30/16 Requesting physician: Marie Washington Consult reason: Elevated troponin Chief complaint: Abdominal pain History of present illness: Ms. Christian is a 63 year old female with PMHx significant of CAD s/p CABG s/p PCI, PAF on coumadin, ICMP with reduced LVEF, and LV aneurysm who presented to the ED with complaints 3-4 day history of abdominal pain. Associated symptoms include poor appetite. She reports pain has been nearly constant and nothing improves pain except pain medications. Of note, patient continues to decline ICD. Cardiology consulted today for elevated troponin, in addition concern for LV aneurysm as seen on CT scan. Prior CV testing: TTE 09/19/17: LVEF 30%, moderately dilated LV, large aneurysm of the anterolateral and inferolateral segments of the LV; no thrombus. TTE 01/26/16: LVEF 30-35%. [facility] 10/28/2015: EF 35%, s/p 3 of 4 patent bypass grafts, stent placed from a prior procedure in the SVG to diag patent; Y graft to 1st OM occluded (seen on prior caths) Past Med Surg Social Fam HX - Past Medical History Attestation: Yes The following information was validated with the patient. Source: patient Medical history: atrial fibrillation, CHF, COPD, coronary artery disease, GERD, hyperlipidemia, hypertension, myocardial infarction, other Additional medical history: PE Psychiatric history: anxiety, depression - Past Surgical History Surgical History: angioplasty/stent, appendectomy, cholecystectomy, coronary bypass (CABG), other Additional surgical history: Quadruple bypass. Heart cath. Balloon stents in both legs. Rt ankle surgery. Bilat carpal tunnel release. - Social History Smoking Status: Current every day smoker Smokeless Tobacco Status: No Alcohol use: occasionally Drug use: none - Family History Mother Adopted: No Living Status: Hx Family Cardiac Disorders: Yes (PT REPORTED HER MOTHER HAD HEART PROBLEMS.) Father Adopted: No Family Member Ethnicity: Non- Living Status: Hx Family Cardiac Disorders: Yes Hx Family Respiratory Disorders: No Hx Family Cancer: Yes Hx Family GI Disorders: No Medications and Allergies Isosorbide MONOnitrate (24 HR) [Imdur] 30 mg PO DAILY #30 tab.er.24h 10/25/15 [Rx] HYDROcodone/Acet 7.5/325 mg [[place] 7.5-325 mg] 1 tab PO Q6H PRN #30 tablet 09/20/17 [Rx] Allopurinol [Zyloprim 100 MG] 100 mg PO DAILY 07/06/18 [History] Clopidogrel [Plavix] 75 mg PO DAILY 07/06/18 [History] PARoxetine HCl [Paroxetine HCl] 40 mg PO DAILY 07/06/18 [History] Spironolactone 25 mg PO DAILY 07/06/18 [History] Warfarin Sodium 4 mg PO SUTUWEFRSA 07/06/18 [History] Lisinopril [Zestril] 5 mg PO DAILY #30 tablet 07/07/18 [Rx] Metoprolol XL (24 HR) Succ [Toprol Xl] 100 mg PO DAILY #30 tab.er.24h 07/07/18 [Rx] Simvastatin [Zocor] 20 mg PO HS 05/29/19 [History] Allergy/AdvReac Type Severity Reaction Status Date / Time atorvastatin [From Lipitor] AdvReac See Verified 05/29/19 15:13 Comments All Systems Review: The remainder of the systems were reviewed and are negative - Cardiovascular Cardiovascular: as per HPI Physical Examination Vital Signs, Last 4 Hours Temp Pulse Resp BP Pulse Ox 05/30/19 08:13 98.7 F 66 17 117/63 96 General: Conversant, No Apparent Distress HEENT: Atraumatic, Normocephaly, Mucus Membranes Moist Cardiac: Reg Rate and Rhythm, Normal S1 and S2 Lungs: Normal Breath Sounds Neuro: Alert and responsive Abdomen: Other (soft, tender) Skin: Other (poor skin integrity ) Extremities: No Edema Other: poor skin integrity to bilateral lower extremities. Results 05/30/19 03:05 05/30/19 03:05 Lab Results 05/30/19 05/30/19 05/30/19 03:05 03:05 03:05 WBC 13.8 H Hgb 10.2 L D Hct 32.3 L Plt Count 198 INR 4.7 H* Sodium Potassium Chloride Carbon Dioxide BUN Creatinine Glucose Calcium Magnesium Total Bilirubin AST ALT Alkaline Phosphatase Troponin I 0.04 H* Lipase 05/30/19 05/30/19 03:05 09:00 WBC Hgb Hct Plt Count INR Sodium 138 Potassium 4.5 Chloride 108 H Carbon Dioxide 22 L BUN 23 Creatinine 1.34 H Glucose 77 Calcium 8.0 L Magnesium 1.6 Total Bilirubin 0.6 AST 14 ALT 14 Alkaline Phosphatase 78 Troponin I 0.04 H* Lipase 12 Active Medications Acetaminophen (Tylenol) 650 mg PO Q6HR PRN PRN Reason: Mild Pain/Fever Stop: 11/29/19 02:13 Hydrocodone Bitart/Acetaminophen ([place] 7.5-325 Mg) 1 tab PO Q6H PRN PRN Reason: MODERATE PAIN Stop: 11/29/19 04:11 Clopidogrel Bisulfate (Plavix) 75 mg PO DAILY RENU Stop: 11/29/19 09:01 Last Admin: 05/30/19 08:14 Dose: 75 mg Documented by: Dextrose/Water (Dextrose 50% (Syg)) 25 ml IVP AD PRN PRN Reason: Hypoglycemia Stop: 11/29/19 02:13 Glucagon (Glucagen) 1 mg IM ONCE PRN PRN Reason: Hypoglycemia Stop: 11/29/19 02:13 Glucose (Gluctose) 15 gm PO ONCE PRN PRN Reason: Hypoglycemia Stop: 11/29/19 02:13 Glucose (Gluctose) 30 gm PO ONCE PRN PRN Reason: Hypoglycemia Stop: 11/29/19 02:13 Dextrose (Dextrose 5%) 1,000 mls @ 100 mls/hr IVC .Q10H PRN PRN Reason: HYPOGLYCEMIA Stop: 11/29/19 02:13 Metronidazole (Flagyl Premix 500 Mg/100 Ml) 500 mg in 100 mls @ 100 mls/hr IVPB Q8HR [facility] Stop: 11/29/19 08:01 Last Infusion: 05/30/19 09:38 Dose: Infused Documented by: Levofloxacin/Dextrose (Levaquin Premix 750mg/150 Ml) 750 mg in 150 mls @ 100 mls/hr IVPB DAILY [facility]; Protocol Stop: 11/29/19 09:01 Last Admin: 05/30/19 09:37 Dose: 100 mls/hr Documented by: Lactated Ringer's (Lactated Ringers) 1,000 mls @ 125 mls/hr IVC .Q8H [facility] Stop: 05/30/19 14:29 Last Admin: 05/30/19 11:14 Dose: 125 mls/hr Documented by: Isosorbide Mononitrate (Imdur) 30 mg PO DAILY [facility] Stop: 11/29/19 09:01 Last Admin: 05/30/19 08:13 Dose: 30 mg Documented by: Metoprolol Succinate (Toprol Xl) 100 mg PO DAILY [facility] Stop: 11/29/19 09:01 Last Admin: 05/30/19 08:13 Dose: 100 mg Documented by: Naloxone HCl (Narcan) 0.4 mg IVP Q2MPRN PRN PRN Reason: SEE COMMENTS Stop: 11/29/19 02:13 Ondansetron HCl (Zofran Odt) 4 mg SL Q8HR PRN PRN Reason: Nausea And Vomiting Stop: 11/29/19 02:13 Oxycodone HCl (Oxycodone Oral Conc) 5 mg SL Q4H PRN; Protocol PRN Reason: mild to moderate pain Stop: 11/29/19 02:13 Paroxetine HCl (Paxil) 40 mg PO DAILY RENU Stop: 11/29/19 09:01 Last Admin: 05/30/19 08:13 Dose: 40 mg Documented by: Simvastatin (Zocor) 20 mg PO HS RENU; Protocol Stop: 11/29/19 21:01 - Imaging and Cardiology Echo: pending, report reviewed Cardiac cath: report reviewed Other Results: 12 hour tele: avg HR=70 - EKG Interpretation EKG results cardiology: personally reviewed Consult Discharge Plan - Plan Referrals: NONE,PCP [Primary Care Provider] -
--- NOTE | 2019-05-30 13:40 | Event Note ---
Date of Encounter: 05/30/19 Time of Encounter: 09:45 Ms. Christian is a 63 year old female with severe CAD status post CABG 2003, left ventricular aneurysm, A. fib on warfarin, ischemic cardiomyopathy HFrEF 30%, current smoker, PAD status post stenting presented to the ED for abdominal pain Abdominal pain: Unknown etiology at this point, Suspected infectious vs vascular vs gastritis. CT dissection study revealed infrarenal abdominal aortic aneurysm measures up to 3 cm. Had leukocytosis which improved today. consult GI for possible EGD to r/o PUD, gastritis. Sepsis: Unknown origin, Had leukocytosis and hypotension at presentation. switch to Zosyn. check CBC tomorrow. NSTEMI: Type II event as per cardio, no new EKG changes. Continue DAPT. Left ventricular aneurysm: Enlarged from before as per the CT report. Cardiology recommended to repeat echo and continue Coumadin with INR goal of 23. ICM with EF 30%: declined ICD. Hold Aldactone due to low blood pressure today. A.fib: Rate controlled, continue Coumadin. Pharmacy to dose, check INR tomorrow
[2019-05-30] MEDS: *HR* HYDROcodone/Acet 7.5/325 mg TABLET PO PRN (15:10)
[2019-05-30] MEDS ORDERED: Albuterol 2.5 MG/3 ML NEBULIZER IH PRN (16:41)
[2019-05-31] MEDS: *HR* HYDROcodone/Acet 7.5/325 mg TABLET PO PRN ×4 (00:30→20:32)
[2019-05-31 04:31] LABS: Hematocrit 33.4 % (35.3-44.9); Hemoglobin 10.7 g/dL (11.5-15.4); Platelet Count 166 K/mcL (140-400); Red Blood Count 3.34 M/mcL (3.82-4.97); Red Cell Distribution Width 14.8 % (11.5-14.5)
[2019-05-31 04:36] LABS: INR 2.4; Prothrombin Time 27.5 Seconds (9.4-12.1)
[2019-05-31 04:47] LABS: Calcium 8.5 mg/dL (8.6-10.3); Potassium 4.5 mEq/L (3.5-5.1)
[2019-05-31] MEDS ORDERED: Perflutren Lipid Microsphere 1.3 ML in 0.9 % Sodium Chloride 8.7 ML IVP ONE (08:29)
[2019-05-31] MEDS ORDERED: Metoprolol 100 MG TABLET PO SCH (09:00)
[2019-05-31] MEDS: Metoprolol XL (24 HR) Succ 50 MG TAB.ER.24H PO SCH (09:06)
[2019-05-31] MEDS: Isosorbide MONOnitrate (24 HR) 30 MG TAB.ER.24H PO SCH (09:06)
[2019-05-31 09:35] LABS: Bilirubin,Urine Negative (Negative); Blood,Urine Negative (Negative); Clarity,Urine Clear (Clear); Color,Urine Yellow (Yellow); Glucose,Urine (UA) Normal (Normal); Ketones,Urine Negative (Negative); Leukocyte Esterase,Urine Negative (Negative); Nitrite,Urine Negative (Negative); PH,Urine 6.5 pH Units (5.0-8.0); Protein,Urine Negative (Neg-Trace); Specific Gravity,Urine 1.016 (1.010-1.025); Urobilinogen,Urine Normal (Normal)
[2019-05-31] MEDS ORDERED: 0.9 % Sodium Chloride 1,000 ML IVC SCH (09:45)
[2019-05-31 09:46] LABS: Estimated Average Glucose 123 mg/dl
--- NOTE | 2019-05-31 11:42 | Internal Med Progress Note ---
Hospitalist Progress Note - Encounter Date of Encounter: 05/31/19 Time of Encounter: 09:05 - Subjective Interval History: Patient was seen this money. She denied nausea/vomiting however she is complaining about KATIE umbilical pain. She had no fever, chills or night sweats - Exam Vitals: Temp Pulse Resp BP Pulse Ox 98.3 F 64 18 98/65 94 05/31/19 11:15 05/31/19 11:15 05/31/19 11:15 05/31/19 11:15 05/31/19 11:15 Exam: General Appearance: Appearing as age, well-nourished in no acute distress. Head: Atraumatic normocephalic Skin: Normal texture, normal turgor, warm, dry. Eyes: Conjunctivae not pale with no erythema, drainage, or ulcers. Anicteric. Neck: No Lymphadenopathy in the anterior/posterior cervical chain. No thyromegaly, masses or ulcers. Trachea midline. Heart: RRR, no murmurs. Capillary refill 3 seconds Lungs: No accessory muscle usage, lungs clear to auscultation bilaterally, basilar wheezes. Extremities: No pitting edema, No clubbing, No cyanosis. Abdomen: Non-distended, normoactive bowel sounds. epigastric tenderness,no peritoneal signs. no guarding Neuro: AOx3 with no new sensory loss or focal deficits. MSK: Strength 5/5 Upper extremity equal bilaterally. Strength 5/5 Lower extremity equal bilaterally - Assessment and Plan (1) Abdominal pain Current Visit: Yes Status: Acute (2) Elevated troponin Current Visit: Yes Status: Resolved (3) Left ventricular aneurysm Current Visit: Yes Status: Chronic (4) Atrial fibrillation Current Visit: Yes Status: Chronic (5) Ischemic cardiomyopathy Current Visit: Yes Status: Chronic (6) DVT prophylaxis Current Visit: No Status: Acute - Summary of Assessment and Plan Summary of Assessment and Plan: Ms. Christian is a 63 year old female with severe CAD status post CABG 2003, left ventricular aneurysm, A. fib on warfarin, ischemic cardiomyopathy HFrEF 30%, current smoker, PAD status post stenting presented to the ED for abdominal pain Abdominal pain: Unknown etiology at this point, Suspected ischemic due to hypotension but can't r/u Infectious vs vascular vs GI. CT dissection study revealed infrarenal abdominal aortic aneurysm measures up to [address] scan with finding of aortic edema versus infiltration of the fat which could be nonspecific but unable to rule out aortitis. Had leukocytosis which improved t [place]. consult GI, tomorrow for EGD to r/o PUD, gastritis. Check ESR and CRP tomorrow. Consult placed for vascular surgery. Check RPR. Sepsis: Unknown origin, Had leukocytosis and hypotension at presentation. On Zosyn day 2. CT with finding of cystitis, UA collected after starting Abx which will be inaccurate. check CBC tomorrow. NSTEMI: Type II event as per cardio, no new EKG changes. Continue DAPT. Echo is pending. Left ventricular aneurysm: Enlarged from before as per the CT report. Ca rdiology recommended to repeat echo and continue Coumadin with INR goal of 23. INR is 2.3 today, Hold Coumadin for EGD tomorrow. ICM with EF 30%: declined ICD. Hold Aldactone due to low blood pressure today. A.fib: Rate controlled, hold Coumadin. Pharmacy to dose, check INR tomorrow, if subtheraputic, We can bridge with Heparin. DVT ppx: INR is theraputic. I reviewed independently all laboratory workup, pertinent images including x- rays and CT scans. I also reviewed independently and EKGs and my findings are in the body of my assessment and plan. I ordered the laboratory workup and images myself. I discussed finding with patient's, their families, RN's and con sultants involved in the care of the patient. - Time Spent with Patient Total time spent is greater than 50% in coordination of care (as documented) at patient's floor/unit and/or counseling patient: Plan of Care Discussed with: patient Internal Medicine: Result - Labs CBC & Chem 7: 05/31/19 04:05 05/31/19 04:05 Labs: Short CBC 05/31/19 Range/Units 04:05 WBC 13.0 H (4.3-11.1) K/mcL Hgb 10.7 L (11.5-15.4) g/dL Hct 33.4 L (35.3-44.9) % Plt Count 166 (140-400) K/mcL BMP 05/31/19 04:05 Sodium 136 Potassium 4.5 Chloride 107 Carbon Dioxide 22 L BUN 31 H Creatinine 1.68 H Glucose 77 Calcium 8.5 L Urine 05/31/19 Range/Units 09:10 Urine Color Yellow (Yellow) Urine Clarity Clear (Clear) Urine pH 6.5 (5.0-8.0) pH Units Ur Specific [place] 1.016 (1.010-1.025) Urine Protein Negative (Neg-Trace) mg/dL Urine Glucose (UA) Normal (Normal) mg/dL - ABG Interpretation ABG results: PT/INR, D-dimer PT 27.5 Seconds (9.4-12.1) H 05/31/19 04:05 - Impressions Impressions Abdomen/Pelvis CT 05/30/19 20:13 IMPRESSION: Minimal periaortic edema versus infiltration of the fat may be due to nonspecific third-spacing of fluid but could suggest underlying aortitis. Please correlate with sedimentation rate and CRP. 3 mm right renal calculus, nonobstructive. Bladder wall thickening likely due to underdistention. Please correlate urinalysis findings. Abdominal aortic aneurysm 3 cm in size. Yearly follow-up recommended. Left ventricular aneurysm again identified. D/ / Cecil Borrero / Cecil Borrero Interpreting Provider: Cecil Borrero - VTE Reasons for not Prescribing Prophylaxis: Not indicated-Anticoagulated or INR therapeutic Consult Discharge Plan - Plan Referrals: NONE,PCP [Primary Care Provider] - (1) Abdominal pain Qualifiers: Abdominal location: periumbilical Qualified Code(s): R10.33 - Periumbilical pain (4) Atrial fibrillation Qualifiers: Atrial fibrillation type: paroxysmal Qualified Code(s): I48.0 - Paroxysmal atrial fibrillation
--- NOTE | 2019-05-31 12:19 | Cardiology Progress Note ---
Date of Encounter: 05/31/19 Time of Encounter: 14:00 Assessment and Plan (1) Left ventricular aneurysm Current Visit: Yes Status: Chronic Known LV aneurysm dating back to 2016. CT scan shows increase in aneurysm size since 2018. TTE as below. Of note, patient declines further work-up. Continue Coumadin, goal INR 2-3. Hold coumadin until INR falls below 3. Recommend pharmacy to dose. Follow-up with Dr. Thompson as scheduled. LVEF 30%. Moderately dilated left ventricle. Severe segmental left ventricular systolic dysfunction. Atypical septal motion consistent with post-operative status. Large aneurysm of the lateral segments of the LV. Normal right ventricular structure and function. No evidence of pulmonary hypertension. No significant valvular dysfunction. Consider CT or cardiac MRI to better evaluate LV aneurysm size. Left Ventricular Wall Motion: The apex, apical inferior, mid inferior, basal inferior, apical anterior, mid anterior, basal anterior, apical septal, mid inferior septal, basal inferior septal, mid anterior septal and basal anterior septal barnett were hypokinetic. The apical lateral, mid anterior lateral, basal anterior lateral, mid inferior lateral and basal inferior lateral barnett were aneurysmal. (2) Elevated troponin Current Visit: Yes Status: Resolved Mild troponin elevation the setting of possible sepsis; presentation is not consistent with ACS. Patient denies chest pain/discomfort. Reports x3 day hx of abdominal pain--i mproved with GI cocktail. No ECG changes from previous. Continue home medications including betablocker, statin, plavix. (3) Ischemic cardiomyopathy Current Visit: Yes Status: Chronic Hx of ICMP with reduced LVEF, 30%. NYHA class II symptoms. Declines ICD implant on numerous occasions. No chest pain reported. Continue home CV medications including BB, statin, and nitrates. (4) Atrial fibrillation Current Visit: Yes Status: Chronic Hx of PAF on Coumadin. Rate controlled upon exam, continue home medications. Qualifiers: Atrial fibrillation type: paroxysmal Qualified Code(s): I48.0 - Paroxysmal atrial fibrillation (5) Supratherapeutic INR Current Visit: No Status: Acute (6) Abdominal pain Current Visit: Yes Status: Acute Mgmt per primary service. Qualifiers: Abdominal location: periumbilical Qualified Code(s): R10.33 - Periumbilical pain Discussion w patient/family: The assessment and plan as outlined above was discussed with the patient and/or family members who expressed understanding and agreement. All questions were answered. Thank you for involving us in the care of your patient. Please call with any questions. The patient will be discussed and reviewed with Dr. Benitez; changes to be made accordingly. Subjective Principal diagnosis: LV aneurysm, abdominal pain Interval history: Seen and examined. No new CV complaints overnight. Reports will have GI work-up tomorrow. Objective Vital Signs, Last 4 Hours Temp Pulse Resp BP Pulse Ox 05/31/19 11:15 98.3 F 64 18 98/65 94 General: Conversant, No Apparent Distress HEENT: Atraumatic, Normocephaly, Mucus Membranes Moist Neck: No JVD, Normal carotid pulses Cardiac: Reg Rate and Rhythm, Normal S1 and S2, No Murmur Lungs: Normal Breath Sounds, No Wheeze, Rales, Rhonchi Neuro: Alert and responsive, No focal deficits noted Abdomen: Soft, Other (tender x4) Skin: No rashes noted on visualized skin Musculoskeletal: No Chest Wall Tenderness Extremities: Other (poor skin integrity BLE ) Results 05/31/19 04:05 05/31/19 04:05 Lab Results 05/31/19 05/31/19 05/31/19 04:05 04:05 04:05 WBC 13.0 H Hgb 10.7 L Hct 33.4 L Plt Count 166 INR 2.4 Sodium 136 Potassium 4.5 Chloride 107 Carbon Dioxide 22 L BUN 31 H Creatinine 1.68 H Glucose 77 Calcium 8.5 L Active Medications Acetaminophen (Tylenol) 650 mg PO Q6HR PRN PRN Reason: Mild Pain/Fever Stop: 11/29/19 02:13 Hydrocodone Bitart/Acetaminophen ([place] 7.5-325 Mg) 1 tab PO Q6H PRN PRN Reason: MODERATE PAIN Stop: 11/29/19 04:11 Last Admin: 05/31/19 09:09 Dose: 1 tab Documented by: Albuterol Sulfate (Proventil Neb) 2.5 mg IH Q6H PRN; Protocol PRN Reason: Shortness Of Breath Stop: 11/29/19 16:42 Clopidogrel Bisulfate (Plavix) 75 mg PO DAILY RENU Stop: 11/29/19 09:01 Last Admin: 05/31/19 09:06 Dose: 75 mg Documented by: Dextrose/Water (Dextrose 50% (Syg)) 25 ml IVP AD PRN PRN Reason: Hypoglycemia Stop: 11/29/19 02:13 Glucagon (Glucagen) 1 mg IM ONCE PRN PRN Reason: Hypoglycemia Stop: 11/29/19 02:13 Glucose (Gluctose) 15 gm PO ONCE PRN PRN Reason: Hypoglycemia Stop: 11/29/19 02:13 Glucose (Gluctose) 30 gm PO ONCE PRN PRN Reason: Hypoglycemia Stop: 11/29/19 02:13 Dextrose (Dextrose 5%) 1,000 mls @ 100 mls/hr IVC .Q10H PRN PRN Reason: HYPOGLYCEMIA Stop: 11/29/19 02:13 Sodium Chloride (0.9 % Sodium Chloride) 1,000 mls @ 75 mls/hr IVC .[id number] Stop: 05/31/19 23:04 Last Admin: 05/31/19 09:59 Dose: 75 mls/hr Documented by: Isosorbide Mononitrate (Imdur) 30 mg PO DAILY [facility] Stop: 11/29/19 09:01 Last Admin: 05/31/19 09:06 Dose: 30 mg Documented by: Metoprolol Succinate (Toprol Xl) 75 mg PO DAILY [facility] Stop: 12/01/19 09:01 Naloxone HCl (Narcan) 0.4 mg IVP Q2MPRN PRN PRN Reason: SEE COMMENTS Stop: 11/29/19 02:13 Ondansetron HCl (Zofran Odt) 4 mg SL Q8HR PRN PRN Reason: Nausea And Vomiting Stop: 11/29/19 02:13 Paroxetine HCl (Paxil) 40 mg PO DAILY [facility] Stop: 11/29/19 09:01 Last Admin: 05/31/19 09:06 Dose: 40 mg Documented by: Simvastatin (Zocor) 20 mg PO [facility]; Protocol Stop: 11/29/19 21:01 Last Admin: 05/30/19 19:59 Dose: 20 mg Documented by: - Imaging and Cardiology Echo: report reviewed - EKG Interpretation EKG results cardiology: personally reviewed - VTE Reasons for not Prescribing Prophylaxis: Not indicated-Anticoagulated or INR therapeutic Consult Discharge Plan - Plan Referrals: NONE,PCP [Primary Care Provider] -
--- NOTE | 2019-05-31 12:34 | Gastroenterology Consult Note ---
<Kodi Bentley - Last Filed: 05/31/19 12:32> Date of Encounter: 05/31/19 Time of Encounter: 11:35 - Assessment and plan (1) Epigastric pain Current Visit: Yes Status: Acute Assessment and plan: Epigastric pain could be due to aortitis. Plan for EGD tomorrow (due to INR 2.4) to r/o esophagitis, gastritis, duodenitis, PUD, MW tear, or AVM. Keep NPO at midnight. Continue to hold Coumadin. Start PPI. (2) Supratherapeutic INR Current Visit: No Status: Acute Assessment and plan: INR 4.7 on admission and 2.4 today. Continue to hold Coumadin. - Time Spent With Patient Total time spent is greater than 50% in coordination of care (as documented) at patient's floor/unit and/or counseling patient: GI History of Present Illness - Data of Consult Patient: new to practice Consult date: 05/31/19 Requesting Physician: Winifred Elizabeth - Consult Narrative Reason for consult: Abd pain History of present illness: Ms. Christian is a 63 year old female with PMHx of CAD status post CABG 2003, left ventricular aneurysm, A. fib on warfarin, ischemic cardiomyopathy HFrEF 30%, COPD, GERD, HLD, HTN who presented to the ED with 3 day history of epigastric abdominal pain and occasional nausea. No association with food, trauma, or chest pain, vomiting, no alleviating, or exacerbating factor. She denies fever, chills chest pain, shortness of breath, vomiting, melena, hematochezia. CT A/P shows periaortic edema versus infiltration of the fat may be due to nonspecific third-spacing of fluid but could suggest underlying aortitis. Lipase is WNL at 12. On admission Hgb 10.2 with INR 4.7, today Hgb 10.7 with INR 2.4. Procedures: No record. NSAIDs: None Anticoagulation: Coumadin Past Med Surg Social Fam HX - Past Medical History Medical history: atrial fibrillation, CHF, COPD, coronary artery disease, GERD, hyperlipidemia, hypertension, myocardial infarction, other Additional medical history: PE Psychiatric history: anxiety, depression - Past Surgical History Surgical History: angioplasty/stent, appendectomy, cholecystectomy, coronary bypass (CABG), other Additional surgical history: Quadruple bypass. Heart cath. Balloon stents in both legs. Rt ankle surgery. Bilat carpal tunnel release. - Social History Smoking Status: Current every day smoker Smokeless Tobacco Status: No Alcohol use: occasionally Drug use: none - Family History Mother Adopted: No Living Status: Hx Family Cardiac Disorders: Yes (PT REPORTED HER MOTHER HAD HEART PROBLEMS.) Father Adopted: No Family Member Ethnicity: Non- Living Status: Hx Family Cardiac Disorders: Yes Hx Family Respiratory Disorders: No Hx Family Cancer: Yes Hx Family GI Disorders: No - Gastrointestinal Gastrointestinal: Present: as per HPI - Constitutional Constitutional: as per HPI - EENT Eyes: as per HPI Ears: Present: as per HPI Nose, mouth and throat: Present: as per HPI - Cardiovascular Cardiovascular ROS: Present: as per HPI - Respiratory Respiratory IM: Present: as per HPI - Genitourinary Genitourinary: Absent: change in color, Urinary frequency - Neurological ROS Neurological GI: Present: as per HPI - Hematologic/Lymphatic Hematologic/Lymphatic pediatric: Present: as per HPI - Musculoskeletal Musculoskeletal ROS GI: Present: as per HPI - Integumentary Integumentary GI: Present: as per HPI - Psychiatric ROS Psychiatric GI: Present: as per HPI - Endocrine Endocrine IM: Present: as per HPI - Constitutional Vitals: Temp Pulse Resp BP Pulse Ox 98.3 F 64 18 98/65 94 05/31/19 11:15 05/31/19 11:15 05/31/19 11:15 05/31/19 11:15 05/31/19 11:15 General appearance: Present: cooperative, A&O X 3, no acute distress, answers questions appropriately - Head Head exam: Present: atraumatic, normocephalic - Eye Eye exam: Present: normal appearance, sclera anicteric - ENT ENT exam: Present: mucous membranes dry - Neck Neck exam general surgery: Present: normal inspection, trachea midline - Respiratory Respiratory exam: Present: decreased breath sounds, CTAB. Absent: rales, rhonchi - Cardiovascular Cardiovascular exam: Present: RRR, +S1, +S2 - GI/Abdominal GI/Abdominal exam: Present: soft, tenderness (epigastric), no peritoneal signs. Absent: distended, firm, guarding - Rectal Rectal exam: Present: deferred - Extremities Exam Extremities exam: Present: warm - Neurological Exam Neurological exam: Present: no focal deficits - Psychiatric Psychiatric exam: Present: normal affect, normal mood - Skin Skin exam: Present: dry, intact, normal color, warm Results - Labs CBC & Chem 7: 05/31/19 04:05 05/31/19 04:05 Labs: Last Result 05/31/19 04:05 Calcium 8.5 L Entire Visit 05/31/19 05/31/19 04:05 04:05 Hgb 10.7 L Hct 33.4 L PT 27.5 H - ABG ABG results: PT/INR, D-dimer PT 27.5 Seconds (9.4-12.1) H 05/31/19 04:05 - Impressions Impressions Abdomen/Pelvis CT 05/30/19 20:13 IMPRESSION: Minimal periaortic edema versus infiltration of the fat may be due to nonspecific third-spacing of fluid but could suggest underlying aortitis. Please correlate with sedimentation rate and CRP. 3 mm right renal calculus, nonobstructive. Bladder wall thickening likely due to underdistention. Please correlate urinalysis findings. Abdominal aortic aneurysm 3 cm in size. Yearly follow-up recommended. Left ventricular aneurysm again identified. D/ / Cecil Borrero / Cecil Borrero Interpreting Provider: Cecil Borrero Consult Discharge Plan - Plan Referrals: NONE,PCP [Primary Care Provider] - <Malik Mccullough - Last Filed: 05/31/19 17:37> Date of Encounter: 05/31/19 - Time Spent With Patient Total time spent is greater than 50% in coordination of care (as documented) at patient's floor/unit and/or counseling patient: GI History of Present Illness - Data of Consult Requesting Physician: Winifred Elizabeth - Consult Narrative History of present illness: Ms. Christian is a 63 year old female - Constitutional Vitals: Temp Pulse Resp BP Pulse Ox 97.7 F 56 18 92/51 93 05/31/19 16:40 05/31/19 16:40 05/31/19 16:40 05/31/19 16:40 05/31/19 16:40 Results - Labs CBC & Chem 7: 05/31/19 04:05 05/31/19 04:05 - ABG ABG results: PT/INR, D-dimer PT 27.5 Seconds (9.4-12.1) H 05/31/19 04:05 - Impressions Impressions Abdomen/Pelvis CT 05/30/19 20:13 IMPRESSION: Minimal periaortic edema versus infiltration of the fat may be due to nonspecific third-spacing of fluid but could suggest underlying aortitis. Please correlate with sedimentation rate and CRP. 3 mm right renal calculus, nonobstructive. Bladder wall thickening likely due to underdistention. Please correlate urinalysis findings. Abdominal aortic aneurysm 3 cm in size. Yearly follow-up recommended. Left ventricular aneurysm again identified. D/ / Cecil Borrero / Cecil Borrero Interpreting Provider: Cecil Borrero Echocardiogram 05/31/19 10:21 Impressions: LVEF 30%. Moderately dilated left ventricle. Severe segmental left ventricular systolic dysfunction. Atypical septal motion consistent with post-operative status. Large aneurysm of the lateral segments of the LV. Normal right ventricular structure and function. No evidence of pulmonary hypertension. No significant valvular dysfunction. Consider CT or cardiac MRI to better evaluate LV aneurysm size. Left Ventricular Wall Motion: Rest Echo Findings The apex, apical inferior, mid inferior, basal inferior, apical anterior, mid anterior, basal anterior, apical septal, mid inferior septal, basal inferior septal, mid anterior septal and basal anterior septal abrnett were hypokinetic. The apical lateral, mid anterior lateral, basal anterior lateral, mid inferior lateral and basal inferior lateral barnett were aneurysmal. Findings: Study Quality * Technically sub-optimal due to poor echocardiographic windows. ECG Findings * Atrial fibrillation. Left Ventricle * LVEF 30%. * Moderately dilated left ventricle. * Severe segmental left ventricular systolic dysfunction. * Large aneurysm of the lateral segments of the LV. Size not well defined due to technical quality. * Atypical septal motion consistent with post-operative status. Right Ventricle * Normal right ventricular structure and function. Left Atrium * Mildly dilated left atrium. Right Atrium * Normal right atrial size. Interatrial Septum * Interatrial septum not well evaluated. Aortic Valve * Aortic valve not well visualized. * No aortic regurgitation. * No aortic stenosis. Mitral Valve * Mild mitral annular calcification * Trace mitral regurgitation. * No mitral stenosis. Tricuspid Valve * Normal tricuspid valve structure and function. * Trace tricuspid regurgitation. * No evidence of pulmonary hypertension. Pulmonic Valve * Pulmonic valve not well visualized. Pericardium * The pericardium appears normal. IVC * Normal IVC dimensions and inspiratory collapse. Aorta * Normally sized aortic root. - Attending Attestation I have personally performed a face to face evaluation on this patient. I have reviewed and agree with the care plan. History and Exam by me shows: seen complaining of epigastric mid abdominal pain examination: Does has epigastric tenderness. Assessment: Patient with abdominal pain with CT concerning for aortitis questionable. Recommendation: EGD to rule out GI causes for her abdominal pain
--- NOTE | 2019-05-31 16:35 | Vascular/Endovasc Consult Note ---
Date of Encounter: 05/31/19 Time of Encounter: 14:45 Assessment and Plan (1) Abdominal pain Current Visit: Yes Status: Acute The patient reported an episode of midepigastric pain which was initially significant but has now subsided. Her exam reveals no evidence of midepigastric tenderness. She has no abdominal, flank or back pain or tenderness. Her CT was revealed and minimal suprarenal periaortic inflammation may be present. This does not appear to be the etiology of her symptoms. Consider repeat CT scan in approximately 1 month or if her symptoms recur or progress without another underlying etiology. At this time she has been scheduled for a gastroenterology consultation with plans for endoscopy. Qualifiers: Abdominal location: periumbilical Qualified Code(s): R10.33 - Periumbilical pain (2) HTN (hypertension) Current Visit: No Status: Chronic The patient was counseled regarding atherosclerotic risk factor reduction. Qualifiers: Hypertension type: essential hypertension Qualified Code(s): I10 - Essential (primary) hypertension (3) Atherosclerosis of [place] arteries of extremities with intermittent claudication, bilateral legs Current Visit: Yes Status: Chronic The patient has a history of peripheral vascular disease with bilateral iliac stent placement. Her stents are patent by recent CT scan. She denies disabling claudication and rest pain, ulceration or gangrene. (4) CAD (coronary artery disease) Current Visit: Yes Status: Acute Qualifiers: Coronary Disease-Associated Artery/Lesion type: bypass graft [place] vs. transplanted heart: [place] heart Associated angina: without angina Qualified Code(s): I25.810 - Atherosclerosis of coronary artery bypass graft(s) without angina pectoris (5) CKD (chronic kidney disease), stage III Current Visit: Yes Status: Chronic (6) Tobacco abuse Current Visit: Yes Status: Chronic The patient was counseled regarding smoking cessation. (7) Ischemic cardiomyopathy Current Visit: Yes Status: Chronic - History of Present Illness Consult date: 05/31/19 Requesting physician: Winifred Elizabeth Consult reason: Abdominal pain Chief complaint: Midepigastric pain History of present illness: Ms. Christian is a 63 year old female with a history of atrial fibrillation, CHF, COPD, hypertension, coronary artery disease with ischemic cardiomyopathy, tobacco abuse, hyperlipidemia and peripheral vascular disease. The patient presented to the emergency room with complaints of midepigastric pain yesterday. As part of her evaluation she underwent a CT angiogram which filled no evidence of aortic dissection. She underwent a noncontrast CT which revealed possible mild periaortic inflammation of the suprarenal aorta. Lesser surgery was counseled for further evaluation. The patient has previous undergone bilateral iliac stent placement several years ago. She denies disabling claudication, rest pain, ulceration or gangrene. She reports that her midepigastric pain has completely resolved and she is tolerating a diet. She denies any associated vomiting, diarrhea or constipation. She did have an episode of nausea which has now resolved. She denies any fevers or chills. She denies chest pain or shortness of breath. Past Med Surg Social Fam HX - Past Medical History Medical history: atrial fibrillation, CHF, COPD, coronary artery disease, GERD, hyperlipidemia, hypertension, myocardial infarction, other Additional medical history: PE Psychiatric history: anxiety, depression - Past Surgical History Surgical History: angioplasty/stent, appendectomy, cholecystectomy, coronary bypass (CABG), other Additional surgical history: Quadruple bypass. Heart cath. Balloon stents in both legs. Rt ankle surgery. Bilat carpal tunnel release. - Social History Smoking Status: Current every day smoker Smokeless Tobacco Status: No Alcohol use: occasionally Drug use: none - Family History Mother Adopted: No Living Status: Hx Family Cardiac Disorders: Yes (PT REPORTED HER MOTHER HAD HEART PROBLEMS.) Father Adopted: No Family Member Ethnicity: Non- Living Status: Hx Family Cardiac Disorders: Yes Hx Family Respiratory Disorders: No Hx Family Cancer: Yes Hx Family GI Disorders: No Medications and Allergies Isosorbide MONOnitrate (24 HR) [Imdur] 30 mg PO DAILY #30 tab.er.24h 10/25/15 [Rx] HYDROcodone/Acet 7.5/325 mg [[place] 7.5-325 mg] 1 tab PO Q6H PRN #30 tablet 09/20/17 [Rx] Allopurinol [Zyloprim 100 MG] 100 mg PO DAILY 07/06/18 [History] Clopidogrel [Plavix] 75 mg PO DAILY 07/06/18 [History] PARoxetine HCl [Paroxetine HCl] 40 mg PO DAILY 07/06/18 [History] Spironolactone 25 mg PO DAILY 07/06/18 [History] Warfarin Sodium 4 mg PO SUMOWEFR 07/06/18 [History] Simvastatin [Zocor] 20 mg PO HS 05/29/19 [History] Albuterol Neb [Proventil Neb] 2.5 mg IH Q6H PRN 05/30/19 [History] Albuterol Sulfate [Proair Hfa] 2 puff IH Q4H PRN 05/30/19 [History] Lisinopril 2.5 mg PO DAILY 05/30/19 [History] Metoprolol Tartrate 100 mg PO DAILY 05/30/19 [History] Nitroglycerin [Nitrostat] 0.4 mg SL Q5M PRN 05/30/19 [History] Warfarin Sodium 8 mg PO TUTHSA 05/30/19 [History] Allergy/AdvReac Type Severity Reaction Status Date / Time atorvastatin [From Lipitor] AdvReac See Verified 05/29/19 15:13 Comments All Systems Review: The remainder of the systems were reviewed and are negative - Constitutional Constitutional: no chills, no fever(s) - Cardiovascular Cardiovascular: no chest pain at rest, no dyspnea at rest - Gastrointestinal Gastrointestinal: no constipation, no diarrhea, no hematemesis, no melena Exam General: Present: Conversant, No Apparent Distress HEENT: Present: Atraumatic, Normocephaly, Pupils equal Neck: Absent: JVD, Lymphadenopathy, Left Carotid bruit, Right Carotid bruit Cardiac: Present: Normal S1 and S2, Irregular Rhythm Lungs: Present: Normal Breath Sounds, No Wheeze, Rales, Rhonchi Neuro: Present: Alert and responsive, No focal deficits noted, Motor nerves grossly intact, Sensory nerves grossly intact Abdomen: Present: Soft, Non-tender. Absent: Masses Vascular: Present: Normal capillary refill, Pulse, normal (Bilateral femoral pulses). Absent: Cyanosis, Edema Skin: Present: No rashes noted on visualized skin Consult Discharge Plan - Plan Referrals: NONE,PCP [Primary Care Provider] -
--- NOTE | 2019-05-31 18:30 | Electrocardiograph Report ---
[address] [place] [address] Test Date: 2019-05-30 Pat Name: Carin Christian Department: 112 Room: 2A Gender: F [employer] Supervisor: EDILBERTO : 1955 Requested By: Marie Washington Order Number: [id number] Reading MD: Nic Pacheco Measurements Intervals Guys Rate: 64 P: -70 GA: 157 QRS: 5 QRSD: 91 T: 162 QT: 414 QTc: 423 Interpretive Statements SINUS RHYTHM POSSIBLE INFERIOR MYOCARDIAL INFARCTION, OF INDETERMINATE AGE MODERATE T-WAVE ABNORMALITY, CONSIDER LATERAL ISCHEMIA Electronically Signed On 05-31-2019 16:31:50 EDT by Nic Pacheco
--- NOTE | 2019-05-31 23:14 | Anesthesia Evaluation PreOp ---
<Grisel Harmon - Last Filed: 05/31/19 23:12> Date of Encounter: 05/31/19 Time of Encounter: 23:12 - Past History Planned Operation: EGD Cardiac History: [place], CHF (EF 30%), HTN, Hyperlipidemia, Arrhythmia (afib), Cardiac Surgery (CABG x 4), Other ((1) Left ventricular aneurysm Current Visit: Yes Status: Chronic Known LV aneurysm dating back to 2016. CT scan shows increase in aneurysm size since 2018. TTE as below. Of note, patient declines further work-up. Continue Coumadin, goal INR 2-3. Hold coumadin until INR falls below 3. Recommend pharmacy to dose. Follow-up with Dr. Thompson as scheduled. LVEF 30%. Moderately dilated left ventricle. Severe segmental left ventricular systolic dysfunction. Atypical septal motion consistent with post- operative status. Large aneurysm of the lateral segments of the LV. Normal right ventricular structure and function. No evidence of pulmonary hypertension. No significant valvular dysfunction. Consider CT or cardiac MRI to better evaluate LV aneurysm size.) Pulmonary History: Smoker, COPD, Other (PE) PLANNING ADVISOR History: Other (anxiety, depression) Other Medical History: Renal (CKD stage 3), GERD, Other (PVD) Anesthesia History: No Prior Anesthetic Complications, Past Anesthesia (CABG, appy, christa, LE stents, R ankle, [facility]) Alcohol Use: occasionally Drug use: none Medications and Allergies Isosorbide MONOnitrate (24 HR) [Imdur] 30 mg PO DAILY #30 tab.er.24h 10/25/15 [Rx] HYDROcodone/Acet 7.5/325 mg [[place] 7.5-325 mg] 1 tab PO Q6H PRN #30 tablet 09/20/17 [Rx] Allopurinol [Zyloprim 100 MG] 100 mg PO DAILY 07/06/18 [History] Clopidogrel [Plavix] 75 mg PO DAILY 07/06/18 [History] PARoxetine HCl [Paroxetine HCl] 40 mg PO DAILY 07/06/18 [History] Spironolactone 25 mg PO DAILY 07/06/18 [History] Warfarin Sodium 4 mg PO SUMOWEFR 07/06/18 [History] Simvastatin [Zocor] 20 mg PO HS 05/29/19 [History] Albuterol Neb [Proventil Neb] 2.5 mg IH Q6H PRN 05/30/19 [History] Albuterol Sulfate [Proair Hfa] 2 puff IH Q4H PRN 05/30/19 [History] Lisinopril 2.5 mg PO DAILY 05/30/19 [History] Metoprolol Tartrate 100 mg PO DAILY 05/30/19 [History] Nitroglycerin [Nitrostat] 0.4 mg SL Q5M PRN 05/30/19 [History] Warfarin Sodium 8 mg PO TUTHSA 05/30/19 [History] Allergy/AdvReac Type Severity Reaction Status Date / Time atorvastatin [From Lipitor] AdvReac See Verified 05/29/19 15:13 Comments - Meds/Allergy Pre-op Review Medications Reviewed: Yes Beta Blockers on Current Med List: Yes Anesthesia Results - Labs 05/31/19 04:05 05/31/19 04:05 Laboratory Tests 07/06/18 05/31/19 04:15 04:05 PT 27.5 H INR 2.4 APTT 86.3 H D - Imaging EKG: report reviewed ( Interpretive Statements SINUS RHYTHM POSSIBLE INFERIOR MYOCARDIAL INFARCTION, OF INDETERMINATE AGE MODERATE T-WAVE ABNORMALITY, CONSIDER LATERAL ISCHEMIA Electronically Signed On 05-31-2019 16:31:50 EDT by Nic Pacheco) Anesthesia Exam Vital Signs/O2 Sat, Most Current Temp Pulse Resp BP Pulse Ox 98.3 F 56 18 113/71 96 05/31/19 18:44 05/31/19 18:44 05/31/19 18:44 05/31/19 18:44 05/31/19 18:44 Weight: 90kg NPO (# of Hours): MN Anesthesia Assess/Plan ASA Score: 4 Anesthetic Plan: MAC Monitoring Plan: Standard Monitors Recovery Plan: PACU <Aramis Wells - Last Filed: 06/01/19 12:01> Date of Encounter: 06/01/19 - Past History : No - Meds/Allergy Pre-op Review Allergies Reviewed: Yes If Beta Blockers taken, Date/Time (Last Dose taken): 08:45 today Anesthesia Results - Labs 06/01/19 05:27 06/01/19 05:27 Anesthesia Exam Vital Signs/O2 Sat, Most Current Temp Pulse Resp BP Pulse Ox 98.5 F 67 18 150/79 97 06/01/19 06:47 06/01/19 06:47 06/01/19 06:47 06/01/19 06:47 06/01/19 06:47 - HEENT Pupil (Motor): Pupils equal, EOMI Mallampati: I Teeth: Edentulous Oral Opening: Greater than 3 - PLANNING ADVISOR LOC: Oriented PLANNING ADVISOR Motor: Normal RUE, Normal LUE, Normal RLE, Normal LLE, Normal Face PLANNING ADVISOR Sensory: Normal: RUE, LUE, RLE, LLE, Face - Cardiac Rhythm: Regular Murmur: None JVD: No Carotid Bruit: No - Pulmonary Breath Sounds: bilateral Clear Respiratory Effort: Symmetrical Anesthesia Assess/Plan Autologous Blood: Yes
[2019-06-01 05:52] LABS: Basophils % 0.3 %; Eosinophils # 0.5 K/mcL (0.0-0.6); Eosinophils % 3.8 %; Hematocrit 32.9 % (35.3-44.9); Hemoglobin 10.7 g/dL (11.5-15.4); Immature Granulocytes % 0.4 % (0-4); Lymphocytes # 1.9 K/mcL (0.6-4.6); Lymphocytes % 15.8 %; Mean Corpuscular HGB Conc 32.5 g/dL (31.6-35.5); Mean Corpuscular Hemoglobin 31.8 pg (28.0-33.3); Mean Corpuscular Volume 97.6 fL (83.0-100.0); Mean Platelet Volume 10.4 fL (9.4-12.4); Monocytes # 1.2 K/mcL (0.0-1.3); Monocytes % 9.8 %; Neutrophils # 8.3 K/mcL (1.6-8.9); Platelet Count 205 K/mcL (140-400); Red Blood Count 3.37 M/mcL (3.82-4.97); Red Cell Distribution Width 14.6 % (11.5-14.5); Segmented Neutrophils % 69.9 %; White Blood Count 11.8 K/mcL (4.3-11.1)
[2019-06-01 06:12] LABS: Calcium 8.9 mg/dL (8.6-10.3); Potassium 4.4 mEq/L (3.5-5.1)
[2019-06-01] MEDS: Isosorbide MONOnitrate (24 HR) 30 MG TAB.ER.24H PO SCH (08:47)
[2019-06-01] MEDS: *HR* HYDROcodone/Acet 7.5/325 mg TABLET PO PRN (08:52)
[2019-06-01] MEDS ORDERED: Metoprolol XL (24 HR) Succ 50 MG TAB.ER.24H PO SCH (09:00)
[2019-06-01 09:14] LABS: INR 1.4; Prothrombin Time 16.1 Seconds (9.4-12.1)
[2019-06-01] MEDS ORDERED: MOM Conc 10 ML UD.LIQ PO SCH ×3 (09:44→21:00)
[2019-06-01] MEDS ORDERED: *HR* Etomidate 40 MG/20 ML VIAL IVP ONE (11:43)
[2019-06-01 11:51] VITALS: BP 112/46
--- NOTE | 2019-06-01 13:10 | Anesthesia Evaluation Post Op ---
Date of Encounter: 06/01/19 Time of Encounter: 13:08 - Vital Signs Vital Signs: Vital Signs/O2 Sat, Most Current Temp Pulse Resp BP Pulse Ox 98 F 67 18 112/46 96 06/01/19 11:48 06/01/19 11:48 06/01/19 11:48 06/01/19 11:48 06/01/19 11:48 137/67, 64, 20. 97% on 3 lpm O2. - Lungs Lungs: Clear Ascult./Percussion - Airway Airway: Non-obstructed - Cardiovascular Baseline Rhythm - Mental Status Mental Status: Alert & Oriented, Answers Appropriately - Pain Pain Scale: 0 Pain Scale used: Numeric (1 - 10) - Nausea Vomiting Nausea Vomiting: Not Present - Hydration Hydration: NPO, Has not voided - Discharge PostOp Status: Transfer Patient to floor
--- NOTE | 2019-06-01 14:11 | Discharge Summary ---
- NOTES TO OUTPATIENT PROVIDER Notes to Outpatient Provider: Patient was admitted for periumbilical abdominal pain and CT scan of the abdomen revealed mild fluid collection around abdominal aorta with suspicion of aortitis however is not confirmed. Vascular surgery does not think so and recommend CT scan of the abdomen in 1 month. EGD revealed nonbleeding gastric ulcer. Follow up on Biopsy results. Orders not resulted at time of discharge: Pending orders 05/30/19 07:21 Occult Blood,Stool [BF] Routine 05/30/19 14:02 Blood Culture [Culture,Blood] [BC] Routine 05/30/19 15:39 Culture,Sputum with Gram Stain [RM] Routine 06/01/19 05:27 FERNANDO IgG SOLA rflx IFA AM 0400 06/01/19 13:03 Surgical Pathology [PTH] Routine Date of Encounter: 06/01/19 Time of Encounter: 09:15 - Discharge Diagnosis (1) Elevated troponin Priority: Secondary Status: Resolved (2) Left ventricular aneurysm Priority: Secondary Status: Chronic (3) Atrial fibrillation Priority: Secondary Status: Chronic Qualifiers: Atrial fibrillation type: paroxysmal Qualified Code(s): I48.0 - Paroxysmal atrial fibrillation (4) Ischemic cardiomyopathy Priority: Secondary Status: Chronic (5) DVT prophylaxis Priority: Secondary Status: Acute (6) Gastric ulcer Priority: Primary Status: Acute Qualifiers: Gastric ulcer chronicity: acute Gastric ulcer complication status: without hemorrhage or perforation Qualified Code(s): K25.3 - Acute gastric ulcer without hemorrhage or perforation Hospital course: Ms. Christian is a 63 year old female with severe CAD status post CABG 2003, left ventricular aneurysm, A. fib on warfarin, ischemic cardiomyopathy HFrEF 30%, current smoker, PAD status post stenting who came in to the hospital with periumblical abdominal pain. She was found to have Gastric ulcer with EGD. Started on PPI and carafate. She was also found to have periaortic fluid on CT abdomen for which Vascular surgery was consulted and had low threshold for aortitis which was suspicious on the CT scan. Vascular surgery recommended to repeat CT in one month. She was also found to have enlarged chronic left ventricular aneurysm for which cardiology suggested to repeat echo and keep her INR therapeutic. INR today is 1.4 so she will be started on lovenox bridge and follow up with her coagulation clinic at [place] for that. She was also found to have cystitis and she will finish extra 2 days of antibiotics. Today, patient is clinically and hemodynamically stable to be discharged home in stable condition. Discharge discussed with: patient Time spent discussing smoking cessation with patient: more than 10 minutes - Time Spent with Patient Total time spent providing and/or coordinating discharge services: 25 minutes - Discharge Medications Prescriptions: New Amoxicillin/Clavulanate [Augmentin] 875 mg PO BIDWM #4 tablet Sucralfate [Carafate] 1 gm PO QIDAC #120 tablet Pantoprazole Sodium [Protonix] 40 mg PO BID #60 tablet. Enoxaparin [Lovenox] 80 mg SQ Q12HR 3 Days #6 syr Continued Isosorbide MONOnitrate (24 HR) [Imdur] 30 mg PO DAILY #30 tab.er.24h HYDROcodone/Acet 7.5/325 mg [Eads 7.5-325 mg] 1 tab PO Q6H PRN #30 tablet PRN Reason: Pain Allopurinol [Zyloprim 100 MG] 100 mg PO DAILY PARoxetine HCl [Paroxetine HCl] 40 mg PO DAILY Clopidogrel [Plavix] 75 mg PO DAILY Warfarin Sodium 4 mg PO SUMOWEFR Spironolactone 25 mg PO DAILY Warfarin Sodium 8 mg PO TUTHSA Nitroglycerin [Nitrostat] 0.4 mg SL Q5M PRN PRN Reason: Chest Pain Metoprolol Tartrate 100 mg PO DAILY Lisinopril 2.5 mg PO DAILY Albuterol Sulfate [Proair Hfa] 2 puff IH Q4H PRN PRN Reason: Shortness Of Breath Albuterol Neb [Proventil Neb] 2.5 mg IH Q6H PRN PRN Reason: Shortness Of Breath Simvastatin [Zocor] 20 mg PO HS Home Medications: Isosorbide MONOnitrate (24 HR) [Imdur] 30 mg PO DAILY #30 tab.er.24h 10/25/15 [Rx] HYDROcodone/Acet 7.5/325 mg [Eads 7.5-325 mg] 1 tab PO Q6H PRN #30 tablet 09/20/17 [Rx] Allopurinol [Zyloprim 100 MG] 100 mg PO DAILY 07/06/18 [History] Clopidogrel [Plavix] 75 mg PO DAILY 07/06/18 [History] PARoxetine HCl [Paroxetine HCl] 40 mg PO DAILY 07/06/18 [History] Spironolactone 25 mg PO DAILY 07/06/18 [History] Warfarin Sodium 4 mg PO SUMOWEFR 07/06/18 [History] Simvastatin [Zocor] 20 mg PO HS 05/29/19 [History] Albuterol Neb [Proventil Neb] 2.5 mg IH Q6H PRN 05/30/19 [History] Albuterol Sulfate [Proair Hfa] 2 puff IH Q4H PRN 05/30/19 [History] Lisinopril 2.5 mg PO DAILY 05/30/19 [History] Metoprolol Tartrate 100 mg PO DAILY 05/30/19 [History] Nitroglycerin [Nitrostat] 0.4 mg SL Q5M PRN 05/30/19 [History] Warfarin Sodium 8 mg PO TUTHSA 05/30/19 [History] Amoxicillin/Clavulanate [Augmentin] 875 mg PO BIDWM #4 tablet 06/01/19 [Rx] Enoxaparin [Lovenox] 80 mg SQ Q12HR 3 Days #6 syr 06/01/19 [Rx] Pantoprazole Sodium [Protonix] 40 mg PO BID #60 tablet. 06/01/19 [Rx] Sucralfate [Carafate] 1 gm PO QIDAC #120 tablet 06/01/19 [Rx] Allergies/Adverse Reactions: Allergy/AdvReac Type Severity Reaction Status Date / Time atorvastatin [From Lipitor] AdvReac See Verified 05/29/19 15:13 Comments Date of admission: 05/31/19 14:03 Primary care physician: PCP NONE Consults: 05/30/19 07:14 Consult to Cardiology [CONS] Routine Comment: Consulting Provider: Cardiology [place] Reason for Consult: enlarged aneurysm of the posterolateral left ventricular wall, mild troponin elevation, epigastic pain, EKG changes? Call Completed: No 05/30/19 13:11 Consult to Gastroenterology [CONS] Routine Consulting Provider: Gastroenterology [place] Reason for Consult: abdominal pain, possible need for EGD Call Completed: No 05/31/19 07:53 Consult to Vascular Surgery [CONS] Routine Consulting Provider: Vascular Surgery [place] Reason for Consult: periaortic edema versus infiltration of the fat may be due to nonspecific third-spacing of fluid but could suggest underlying aortitis Call Completed: Yes - Constitutional Vitals: Temp Pulse Resp BP Pulse Ox 98 F 67 18 112/46 96 06/01/19 11:48 06/01/19 11:48 06/01/19 11:48 06/01/19 11:48 06/01/19 11:48 Exam: General Appearance: Appearing as age, well-nourished in no acute distress. Head: Atraumatic normocephalic Skin: Normal texture, normal turgor, warm, dry. Eyes: Conjunctivae not pale with no erythema, drainage, or ulcers. Anicteric. Neck: No Lymphadenopathy in the anterior/posterior cervical chain. No thyromegaly, masses or ulcers. Trachea midline. Heart: RRR, no murmurs. Capillary refill 3 seconds Lungs: No accessory muscle usage, lungs clear to auscultation bilaterally, basilar wheezes. Extremities: No pitting edema, No clubbing, No cyanosis. Abdomen: Non-distended, normoactive bowel sounds. epigastric tenderness,no peritoneal signs. no guarding Neuro: AOx3 with no new sensory loss or focal deficits. MSK: Strength 5/5 Upper extremity equal bilaterally. Strength 5/5 Lower extremity equal bilaterally - Patient Status Disposition: Home, Self-Care Condition: Good Functional capacity at discharge: independent ambulation Overall status at discharge: patient is back to baseline - Ambulatory Orders Ambulatory Orders: Basic Metabolic Panel [CHEM] Time Frame: 5 Days, Facility: [facility] [place], Location: Lab - Discharge Instructions Follow Up With: NONE,PCP [Primary Care Provider] - - Diet and Activity Activity: resume usual activities as tolerated Diet: low salt diet - VTE Reasons for not Prescribing Prophylaxis: Not indicated-Anticoagulated or INR therapeutic
[2019-06-01] MEDS ORDERED: *HR* Warfarin 4 MG TABLET PO ONE (14:33)
[2019-06-01] MEDS ORDERED: *HR* Enoxaparin 80 MG/0.8 ML SYRINGE SQ SCH (15:00)
[2019-06-03 10:14] LABS: ANA IgG by ELISA NONE DETECTED (None Detected)
== END 2019-06-01 17:25 | disposition home or self-care (01) | DRG 871 ==
LOC: 2ANU → SUATTDRO 21:56
PROVIDERS: ADMIT Internal Medicine; ATTEND Internal Medicine
PROC: ENDOEBX (2019-06-01 13:50)

== ENCOUNTER 2020-03-02 02:09 | Inpatient (IN) ==
[2020-03-02] MEDS ORDERED: Naloxone 0.4 MG/ML INJ IVP PRN ×2 (07:19→08:49)
[2020-03-02] MEDS ORDERED: Albuterol 2.5 MG/3 ML NEBULIZER IH PRN (08:46)
[2020-03-02] MEDS ORDERED: Nitroglycerin 0.4 MG TAB.SUBL SL PRN (08:46)
[2020-03-02] MEDS ORDERED: *HR* HYDROcodone/Acet 7.5/325 mg TABLET PO PRN (08:46)
[2020-03-02] MEDS ORDERED: Acetaminophen 325 MG TABLET PO PRN (08:49)
[2020-03-02] MEDS: Azithromycin 500 MG in 0.9 % Sodium Chloride 250 ML IVPB SCH (10:16)
[2020-03-02] MEDS: allopurinoL 100 MG TABLET PO SCH (10:16)
[2020-03-02] MEDS: MethylPREDNISolone 40 MG/ML VIAL IVP SCH (10:24)
[2020-03-02] MEDS: PARoxetine 20 MG TABLET PO SCH (10:24)
[2020-03-02] MEDS: Isosorbide MONOnitrate (24 HR) 30 MG TAB.ER.24H PO SCH (10:32)
[2020-03-02] MEDS: lisinopriL 5 MG TABLET PO SCH (10:33)
[2020-03-02 11:45] LABS: Basophils % 0.1 %; Hematocrit 32.4 % (35.3-44.9); Hemoglobin 10.8 g/dL (11.5-15.4); Immature Granulocytes % 0.4 % (0-4); Lymphocytes # 2.2 K/mcL (0.6-4.6); Lymphocytes % 19.3 %; Mean Corpuscular HGB Conc 33.3 g/dL (31.6-35.5); Mean Corpuscular Hemoglobin 31.9 pg (28.0-33.3); Mean Corpuscular Volume 95.6 fL (83.0-100.0); Mean Platelet Volume 11.4 fL (9.4-12.4); Monocytes # 1.1 K/mcL (0.0-1.3); Neutrophils # 8.3 K/mcL (1.6-8.9); Platelet Count 140 K/mcL (140-400); Red Blood Count 3.39 M/mcL (3.82-4.97); Red Cell Distribution Width 15.8 % (11.5-14.5); Segmented Neutrophils % 71.2 %; White Blood Count 11.6 K/mcL (4.3-11.1)
[2020-03-02 12:03] LABS: INR 2.1; Magnesium 1.8 mg/dL (1.6-2.6); Potassium 4.1 mEq/L (3.5-5.1); Prothrombin Time 23.5 Seconds (9.4-12.1)
[2020-03-02] MEDS: *HR* HYDROcodone/Acet 5/325 mg TABLET PO PRN ×2 (12:27→21:21)
[2020-03-02 12:29] LABS: Troponin I 0.07 ng/mL (< 0.04)
[2020-03-02 12:43] LABS: Adenovirus Not Detected (Not Detect); Bordetella Pertussis Not Detected (Not Detect); Chlamydophila pneumoniae Not Detected (Not Detect); Coronavirus 229E Not Detected (Not Detect); Coronavirus HKU1 Not Detected (Not Detect); Coronavirus NL63 Not Detected (Not Detect); Coronavirus OC43 Not Detected (Not Detect); Human Metapneumovirus Not Detected (Not Detect); Human Rhinovirus/Enterovirus Not Detected (Not Detect); Influenza A Subtype 2009 H1 Not Detected (Not Detect); Influenza B Not Detected (Not Detect); Mycoplasma pneumoniae Not Detected (Not Detect); Parainfluenza Virus 1 Not Detected (Not Detect); Parainfluenza Virus 2 Not Detected (Not Detect); Parainfluenza Virus 3 Not Detected (Not Detect); Parainfluenza Virus 4 Not Detected (Not Detect); Respiratory Syncytial Virus Not Detected (Not Detect)
[2020-03-02] MEDS: Spironolactone 25 MG TABLET PO SCH (13:59)
[2020-03-02] MEDS: Metoprolol 100 MG TABLET PO SCH (14:01)
[2020-03-02] MEDS ORDERED: Warfarin perPT PO PRN (18:00)
[2020-03-02] MEDS ORDERED: *HR* Warfarin 4 MG TABLET PO ONE (18:00)
[2020-03-02] MEDS: Budesonide/Formoterol 160/4.5 1 PUFF INH IH SCH (21:32)
[2020-03-03 06:18] LABS: Basophils % 0.2 %; Eosinophils % 0.1 %; Hematocrit 30.7 % (35.3-44.9); Hemoglobin 10.4 g/dL (11.5-15.4); Immature Granulocytes % 0.4 % (0-4); Lymphocytes % 19.5 %; Mean Corpuscular HGB Conc 33.9 g/dL (31.6-35.5); Mean Corpuscular Volume 94.5 fL (83.0-100.0); Mean Platelet Volume 11.4 fL (9.4-12.4); Monocytes # 1.1 K/mcL (0.0-1.3); Monocytes % 7.4 %; Neutrophils # 11.1 K/mcL (1.6-8.9); Platelet Count 164 K/mcL (140-400); Red Blood Count 3.25 M/mcL (3.82-4.97); Red Cell Distribution Width 15.8 % (11.5-14.5); Segmented Neutrophils % 72.4 %; White Blood Count 15.3 K/mcL (4.3-11.1)
[2020-03-03 06:25] LABS: INR 1.9; Prothrombin Time 22.1 Seconds (9.4-12.1)
[2020-03-03 06:40] LABS: Calcium 9.2 mg/dL (8.6-10.3); Magnesium 1.9 mg/dL (1.6-2.6); Potassium 4.1 mEq/L (3.5-5.1)
[2020-03-03] MEDS ORDERED: 0.9 % Sodium Chloride Mini Bag 100 ML ONE (08:06)
[2020-03-03] MEDS: lisinopriL 5 MG TABLET PO SCH (08:10)
[2020-03-03] MEDS: Spironolactone 25 MG TABLET PO SCH (08:10)
[2020-03-03] MEDS: MethylPREDNISolone 40 MG/ML VIAL IVP SCH (08:10)
[2020-03-03] MEDS: PARoxetine 20 MG TABLET PO SCH (08:10)
[2020-03-03] MEDS: Metoprolol 100 MG TABLET PO SCH (08:10)
[2020-03-03] MEDS: Isosorbide MONOnitrate (24 HR) 30 MG TAB.ER.24H PO SCH (08:10)
[2020-03-03] MEDS: allopurinoL 100 MG TABLET PO SCH (08:10)
[2020-03-03] MEDS: cefTRIAXone 2,000 MG in 0.9 % Sodium Chloride Mini Bag 100 ML IVPB SCH ×2 (08:11→20:08)
[2020-03-03] MEDS: Azithromycin 500 MG in 0.9 % Sodium Chloride 250 ML IVPB SCH (08:11)
[2020-03-03] MEDS: Budesonide/Formoterol 160/4.5 1 PUFF INH IH SCH ×2 (10:02→22:52)
[2020-03-03] MEDS: *HR* OxyCODONE Immed Rel 5 MG TABLET PO PRN (15:14)
[2020-03-03] MEDS ORDERED: *HR* Warfarin 5 MG TABLET PO ONE (18:00)
[2020-03-03] MEDS: *HR* HYDROcodone/Acet 5/325 mg TABLET PO PRN (21:18)
[2020-03-04] MEDS: *HR* OxyCODONE Immed Rel 5 MG TABLET PO PRN ×2 (04:00→14:46)
[2020-03-04 06:18] LABS: INR 2.2; Prothrombin Time 25.1 Seconds (9.4-12.1)
[2020-03-04] MEDS ORDERED: Azithromycin 250 MG TABLET PO SCH (09:00)
[2020-03-04] MEDS ORDERED: predniSONE 20 MG TABLET PO SCH (09:00)
[2020-03-04] MEDS: PARoxetine 20 MG TABLET PO SCH (09:03)
[2020-03-04] MEDS: Spironolactone 25 MG TABLET PO SCH (09:03)
[2020-03-04] MEDS: Isosorbide MONOnitrate (24 HR) 30 MG TAB.ER.24H PO SCH (09:03)
[2020-03-04] MEDS: lisinopriL 5 MG TABLET PO SCH (09:03)
[2020-03-04] MEDS: Metoprolol 100 MG TABLET PO SCH (09:03)
[2020-03-04] MEDS: cefTRIAXone 2,000 MG in 0.9 % Sodium Chloride Mini Bag 100 ML IVPB SCH (09:04)
[2020-03-04] MEDS: allopurinoL 100 MG TABLET PO SCH (09:04)
[2020-03-04] MEDS: Budesonide/Formoterol 160/4.5 1 PUFF INH IH SCH (10:57)
[2020-03-04] MEDS ORDERED: Perflutren Lipid Microsphere 1.3 ML in 0.9 % Sodium Chloride 8.7 ML IVP ONE (13:41)
[2020-03-04 15:47] LABS: Mycoplasma pneumoniae IgG 0.46 U/L (<=0.09)
[2020-03-04 17:18] VITALS: BP 114/95
[2020-03-04] MEDS ORDERED: *HR* Warfarin 4 MG TABLET PO ONE (18:00)
== END 2020-03-04 17:58 | disposition home or self-care (01) | DRG 190 ==
LOC: 2NENU
PROVIDERS: ADMIT Internal Medicine; ATTEND Internal Medicine

== ENCOUNTER 2021-08-09 15:05 | Observation (INO) ==
[2021-08-09] MEDS ORDERED: Naloxone 0.4 MG/ML INJ IVP PRN (19:39)
[2021-08-09] MEDS ORDERED: Ondansetron 4 MG/2 ML VIAL IVP PRN (19:39)
[2021-08-09] MEDS ORDERED: Acetaminophen 325 MG TABLET PO PRN (19:39)
[2021-08-09] MEDS ORDERED: Perflutren Lipid Microsphere 1.3 ML in 0.9 % Sodium Chloride 8.7 ML IVP PRN (21:41)
[2021-08-09] MEDS: MethylPREDNISolone 40 MG/ML VIAL IVP SCH (22:52)
[2021-08-09] MEDS: Furosemide 20 MG/2 ML VIAL IVP SCH (22:53)
[2021-08-09] MEDS: Melatonin 3 MG TABLET PO PRN (22:53)
[2021-08-10] MEDS: Ipratropium/Albuterol Neb 3 ML IH SCH ×3 (00:07→07:56)
[2021-08-10 05:22] LABS: Basophils % 0.1 %; Hematocrit 33.6 % (35.3-44.9); Hemoglobin 11.3 g/dL (11.5-15.4); Immature Granulocytes % 0.6 % (0-4); Lymphocytes # 1.2 K/mcL (0.6-4.6); Lymphocytes % 9.8 %; Mean Corpuscular HGB Conc 33.6 g/dL (31.6-35.5); Mean Corpuscular Hemoglobin 31.7 pg (28.0-33.3); Mean Corpuscular Volume 94.1 fL (83.0-100.0); Mean Platelet Volume 10.4 fL (9.4-12.4); Monocytes # 0.1 K/mcL (0.0-1.3); Monocytes % 0.8 %; Neutrophils # 10.9 K/mcL (1.6-8.9); Platelet Count 260 K/mcL (140-400); Red Blood Count 3.57 M/mcL (3.82-4.97); Red Cell Distribution Width 15.3 % (11.5-14.5); Segmented Neutrophils % 88.7 %; White Blood Count 12.3 K/mcL (4.3-11.1)
[2021-08-10 05:32] LABS: INR 2.6; Prothrombin Time 28.6 Seconds (9.4-12.1)
[2021-08-10 05:34] LABS: Activated Partial Thrombo Time 34.8 Seconds (26.0-36.0)
[2021-08-10 05:39] LABS: Albumin 3.7 g/dL (3.5-5.7); Albumin/Globulin Ratio 1.4 (1.1-2.2); Bilirubin,Total 1.1 mg/dL (0.3-1.0); Calcium 9.3 mg/dL (8.6-10.3); Globulin 2.6 g/dL (2.4-3.5); Potassium 3.9 mEq/L (3.5-5.1); Total Protein 6.3 g/dL (6.4-8.9)
[2021-08-10] MEDS: MethylPREDNISolone 40 MG/ML VIAL IVP SCH (05:49)
[2021-08-10] MEDS ORDERED: Metoprolol 100 MG TABLET PO ONE (09:11)
[2021-08-10] MEDS ORDERED: Ipratropium/Albuterol Neb 3 ML IH PRN (09:13)
[2021-08-10] MEDS: Furosemide 20 MG/2 ML VIAL IVP SCH (09:28)
[2021-08-10] MEDS: Azithromycin 500 MG in 0.9 % Sodium Chloride 250 ML IVPB SCH (09:28)
[2021-08-10] MEDS: predniSONE 20 MG TABLET PO SCH (09:52)
[2021-08-10 11:08] LABS: Magnesium 1.8 mg/dL (1.6-2.6); Troponin I 0.03 ng/mL (< 0.04)
[2021-08-10] MEDS ORDERED: *HR* HYDROcodone/Acet 7.5/325 mg TABLET PO PRN (13:19)
[2021-08-10] MEDS ORDERED: Nitroglycerin 0.4 MG TAB.SUBL SL PRN (13:19)
[2021-08-10] MEDS: Melatonin 3 MG TABLET PO PRN (20:01)
[2021-08-10] MEDS ORDERED: Furosemide 20 MG/2 ML VIAL IVP ONE (21:00)
[2021-08-11 00:54] VITALS: PULSE 76
[2021-08-11 03:00] LABS: Hematocrit 37.5 % (35.3-44.9); Hemoglobin 12.5 g/dL (11.5-15.4); Mean Corpuscular HGB Conc 33.3 g/dL (31.6-35.5); Mean Corpuscular Hemoglobin 31.4 pg (28.0-33.3); Mean Corpuscular Volume 94.2 fL (83.0-100.0); Mean Platelet Volume 10.6 fL (9.4-12.4); Platelet Count 307 K/mcL (140-400); Red Blood Count 3.98 M/mcL (3.82-4.97); White Blood Count 26.6 K/mcL (4.3-11.1)
[2021-08-11 03:42] LABS: Calcium 9.6 mg/dL (8.6-10.3); Potassium 4.1 mEq/L (3.5-5.1)
[2021-08-11 04:27] LABS: Lymphocytes # 3.2 K/mcL (0.6-4.6); Monocytes # 0.5 K/mcL (0.0-1.3); Neutrophils # 22.9 K/mcL (1.6-8.9); Toxic Granulation Present (Not Present)
[2021-08-11 04:28] LABS: Anisocytosis 1+ (Not Present); Platelet Estimate Normal (Normal)
[2021-08-11 05:49] VITALS: BP 147/93; TEMP 97.6; O2SAT 96
[2021-08-11] MEDS: predniSONE 20 MG TABLET PO SCH (08:50)
[2021-08-11] MEDS: Azithromycin 500 MG in 0.9 % Sodium Chloride 250 ML IVPB SCH (08:51)
[2021-08-11] MEDS ORDERED: PARoxetine 20 MG TABLET PO SCH (09:00)
[2021-08-11] MEDS ORDERED: Furosemide 20 MG/2 ML VIAL IVP SCH (09:00)
[2021-08-11] MEDS ORDERED: Isosorbide MONOnitrate (24 HR) 30 MG TAB.ER.24H PO SCH (09:00)
[2021-08-11] MEDS ORDERED: lisinopriL 5 MG TABLET PO SCH (09:00)
[2021-08-11] MEDS ORDERED: Metoprolol XL (24 HR) Succ 50 MG TAB.ER.24H PO SCH ×2 (09:00)
[2021-08-11] MEDS ORDERED: Furosemide 20 MG/2 ML VIAL IVP ONE (13:00)
[2021-08-12] MEDS ORDERED: Furosemide 40 MG TABLET PO SCH (09:00)
== END 2021-08-11 16:00 | disposition home or self-care (01) ==
LOC: 3NENU → SUATTDRO 19:40
PROVIDERS: ADMIT Pharmacist; ATTEND Student in an Organized Health Care Education/Training Program